=== PATIENT | female | born 1985 | race Caucasian/White ===

== ENCOUNTER 2023-07-22 15:54 | Outpatient (CLI) | payer BC, SELFPAY ==
--- NOTE | ~2023-07-22 | XR_ITS ---
Lumbosacral Spine: AP and lateral views Clinical History: Pain Findings: The normal lordotic curve is maintained. The vertebral bodies and posterior elements are i ntact. The intervertebral disc spaces are preserved. The sacroiliac joints are normally outlined. Impression: No significant abnormality. Reviewed, dictated and finalized at [facility]. 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
--- NOTE | ~2023-07-22 | XR_ITS ---
Thoracic spine: Clinical Indication: Back pain AP and lateral views were performed. No fracture is seen. There is normal alignment of the vertebrae. The intervertebral disc spaces appe ar normal. Paravertebral soft tissues appear normal. Impression: No significant abnormalities noted. Reviewed, dictated and finalized at [facility]. ALS RN Impression: No significant abnormalities noted.
== END 2023-07-22 15:55 | disposition home or self-care (01) ==
LOC: CHSIMG 16:00
PROVIDERS: PCP Physician Assistant; Visit Provider Physician Assistant
DX: M54.9 Dorsalgia, unspecified (principal)
CPT/HCPCS: 72072; 72100

== ENCOUNTER 2024-09-17 01:52 | Observation (INO) | payer BC, SELFPAY ==
[2024-09-17] VITALS (18 sets, daily range): BP systolic 108–151; BP diastolic 59–112; PULSE 72–109; RESP 14–40; TEMP 36.2–37.1; O2SAT 95–100; BMI 30.5
--- NOTE | ~2024-09-17 | CT_ITS ---
CT of the Abdomen and Pelvis: Indication: Abdominal pain Technique: 2.5 mm axial scans were obtained through the abdomen and pelvis following intravenous adm inistration of 100 cc of Omnipaque 350. Dose reduction technique was used on this scan by utilizing a utomated exposure control and iterative reconstruction technique. The dose-length product (DLP) was 6 19.50 mGy-cm. Findings: Scans through the lung bases are unremarkable. The liver, spleen, pancreas, adrenals and kidneys are within normal limits. Cholelithiasis noted. No evidence of aortic aneurysm. No lymphadenopathy. No bowel obstruction or bowel wall thickening. There is no evidence to suggest acute appendicitis. Images through the pelvis were performed. Urinary bladder unremarkable. No pelvic mass seen. No ascit es. Impression: Cholelithiasis. Reviewed, dictated and finalized at [facility]. 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
[2024-09-17 02:16] LABS: Basophils Absolute Auto 0.1 K/mm3 (0.0-0.1); Basophils Percent Auto 0.4 % (0.2-1.2); Eosinophils Absolute Auto 0.1 K/mm3 (0-0.3); Eosinophils Percent Auto 0.7 % (0-4.4); Hematocrit 41.6 % (37.0-47.0); Hemoglobin 14.4 g/dL (12.0-15.0); Immature Granulocyte Percent A 0.8 % (0-0.5); Lymphocytes Absolute Auto 2.05 K/mm3 (0.9-3.2); Lymphocytes Percent Auto 15.9 % (18.3-44.2); Mean Corpuscular HGB Conc 34.6 g/dl (32-36); Mean Corpuscular Hemoglobin 29.6 pg (26-34); Mean Corpuscular Volume 85.4 fl (80-100); Mean Platelet Volume 8.9 fl (7.4-10.4); Monocytes Absolute Auto 0.6 K/mm3 (0.1-0.6); Monocytes Percent Auto 4.6 % (2.6-8.5); Neutrophils Percent Auto 77.6 % (45.5-73.1); Platelet Count Result 345 k/mm3 (150-375); Red Blood Count 4.87 M/mm3 (4.2-5.4); Red Cell Distribution Width 12.4 % (11.5-14.5); White Blood Count 12.9 K/mm3 (4.5-10.0)
[2024-09-17 02:30] LABS: Lactic Acid Reflex 3.4 mmol/L (0.7-2.0)
[2024-09-17 02:34] LABS: Alanine Aminotransferase 34 U/L (6-35); Albumin Level 4.9 g/dL (3.5-5.1); Alkaline Phosphatase 71 U/L (38-126); Anion Gap 9 mmol/L (4-12); Aspartate Amino Transferase 26 U/L (14-36); Bilirubin,Total 0.5 mg/dL (0.2-1.3); Blood Urea Nitrogen 20 mg/dL (7-17); Calcium 9.6 mg/dL (8.4-10.2); Carbon Dioxide 18 mmol/L (22-30); Chloride 107 mmol/L (98-107); Estimated CRCL calculation 80 ml/min; Estimated Glomerular Filt Rate > 60; Glucose 123 mg/dL (65-110); Lipase 105 U/L (23-300); Potassium 3.7 mmol/L (3.4-5.0); Sodium 134 mmol/L (137-145)
[2024-09-17] MEDS: SODIUM CHLORIDE 0.9% IV 2,000 ML 999 ML IV CONT (02:37)
[2024-09-17] MEDS: ONDANSETRON INJ 4 MG/2 ML VIAL IV PUSH (02:37)
[2024-09-17] MEDS: KETOROLAC 15 MG/ML VIAL (*BKC) IV PUSH (02:37)
[2024-09-17] MEDS: HYDROmorphone HCL INJ (*CRX) 1 MG/ML SYR IV PUSH (02:44)
[2024-09-17] MEDS: SODIUM CHLORIDE 0.9% IV 1,000 ML 999 ML (03:04)
[2024-09-17] MEDS: CEFEPIME 2 GM/NS 50 ML 2 GM/50 ML BAG IVPB ×3 (03:06→18:25)
--- NOTE | 2024-09-17 03:46 | ED.GENADULT ---
HPI - General Adult General Chief complaint: Abdominal Pain Stated complaint: abdominal pain Time Seen by Provider: 09/17/24 01:57 History of Present Illness HPI narrative: this is a 39-year-old female presenting ED with chief complaint of right upper quadrant abdominal pain. Pain started around 9 last night. Pain is a stabbing pain in her right upper quadrant that radiates to her back. It is constant and severe in intensity and she is in obvious pain crying. She says this feels similar to when she is gallbladder is intact with a never been this intense. Patient has no previous ER visits for gallbladder pain. patient denies fevers. She has pain w/ deep respirations. Last bowel movement was earlier today. Related Data Home Medications ?Medication ?Instructions ?Recorded ?Confirmed ?Last Taken ?Type cholecalciferol (vitamin D3) 50 50 mcg PO DAILY 03/11/23 10/04/23 Unknown History mcg (2,000 unit) capsule magnesium glycinate 100 mg (as 100 mg PO TID 03/11/23 10/04/23 Unknown History glycinate) tablet vitamin D3 125 mcg (5,000 cap PO 03/11/23 10/04/23 Unknown History unit)-vitamin K2 90 mcg capsule Allergies Allergy/AdvReac Type Severity Reaction Status Date / Time Penicillins Allergy Unknown Unknown Verified 09/17/24 02:24 [facility] Past Medical History Medical History High cholesterol LLQ discomfort Diarrhea Cholelithiasis Surgical History Surgical History History of appendectomy History of endometrial ablation Family History Family History Other Heart disease Hypertension Social History Social History Smoking status: Never smoker Alcohol intake: former Substance use: never Living arrangements: with family 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 EYES: EOMI, NOSE: Atraumatic NECK: Trachea midline RESPIRATORY: No increased rate of breathing CTAB CARDIOVASCULAR: RRR, ABDOMINAL: tenderness to palpation the right upper quadrant with guarding. no rebound tenderness MUSCULOSKELETAl: No obvious deformities NEURO: Alert. Moving 4/4 extremities SKIN:: Warm, dry. Normal color PSYCHIATRIC: Normal affect Course Vital Signs Vital signs: Vital Signs Temperature 98 F 09/17/24 02:19 Pulse Rate 83 09/17/24 02:19 Respiratory Rate 40 H 09/17/24 02:19 Blood Pressure 151/112 H 09/17/24 02:19 Pulse Oximetry 100 09/17/24 02:19 Oxygen Delivery Room Air 09/17/24 02:19 Temperature 98 F 09/17/24 02:19 Pulse Rate 83 09/17/24 02:19 Respiratory Rate 40 H 09/17/24 02:19 Blood Pressure 151/112 H 09/17/24 02:19 Pulse Oximetry 100 09/17/24 02:19 Oxygen Delivery Room Air 09/17/24 02:19 Medical Decision Making MDM Narrative Medical decision making narrative: -Course: 39-year-old female presenting with right upper quadrant pain. Patient is in significant distress and exquisitely tender in the right upper quadrant. Patient given Dilaudid, Toradol and fluid resuscitation. white count 12.9, lactic 3.4, and a bicarb 18. CT abdomen pelvis showed a distended gallbladder containing noncalcified gallstones. No biliary ductal dilation seen. On re-evaluation the patient's pain is improved although she is hydrogenation still operator in the right upper quadrant. Patient will be put in observation to be evaluated by Dr. Melton in the morning. -DDX includes but is not limited to: Biliary colic, acute cholecystitis -Co-morbidities complicating care: history of gallstone -Independent interpretation of studies:labs and imaging reviewed -Discussion of Management/Consultants: Dr. Melton -Interventions: 2 L normal saline, cefepime/Flagyl, Dilaudid, Toradol -Shared decision making / Disposition:Observation Vital Signs Vital Signs: Vital Signs Temperature 98 F 09/17/24 02:19 Pulse Rate 83 09/17/24 02:19 Respiratory Rate 40 H 09/17/24 02:19 Blood Pressure 151/112 H 09/17/24 02:19 Pulse Oximetry 100 09/17/24 02:19 Oxygen Delivery Room Air 09/17/24 02:19 Temperature 98 F 09/17/24 02:19 Pulse Rate 83 09/17/24 02:19 Respiratory Rate 40 H 09/17/24 02:19 Blood Pressure 151/112 H 09/17/24 02:19 Pulse Oximetry 100 09/17/24 02:19 Oxygen Delivery Room Air 09/17/24 02:19 Lab Data 09/17/24 02:11 09/17/24 02:11 Labs: Lab Results 09/17/24 Range/Units 02:11 WBC 12.9 H (4.5-10.0) K/mm3 RBC 4.87 (4.2-5.4) M/mm3 Hgb 14.4 (12.0-15.0) g/dL Hct 41.6 (37.0-47.0) % MCV 85.4 (80-100) fl MCH 29.6 (26-34) pg MCHC 34.6 (32-36) g/dl RDW 12.4 (11.5-14.5) % Plt Count 345 (150-375) k/mm3 MPV 8.9 (7.4-10.4) fl Immature Gran % (Auto) 0.8 H (0-0.5) % Neut % (Auto) 77.6 H (45.5-73.1) % Lymph % (Auto) 15.9 L (18.3-44.2) % [place] % (Auto) 4.6 (2.6-8.5) % Eos % (Auto) 0.7 (0-4.4) % Baso % (Auto) 0.4 (0.2-1.2) % Lymph # (Auto) 2.05 (0.9-3.2) K/mm3 [place] # (Auto) 0.6 (0.1-0.6) K/mm3 Eos # (Auto) 0.1 (0-0.3) K/mm3 Baso # (Auto) 0.1 (0.0-0.1) K/mm3 Abs Immat Gran (auto) 0.10 H (0.00-0.031) K/mm3 Absolute Neuts (auto) 10.0 H (1.3-6.7) K/mm3 Absolute Nucleated RBC 0.000 (0.0-0.012) K/mm3 Nucleated RBC % 0.0 (0.0-0.2) % Sodium 134 L (137-145) mmol/L Potassium 3.7 (3.4-5.0) mmol/L Chloride 107 (98-107) mmol/L Carbon Dioxide 18 L (22-30) mmol/L Anion Gap 9 (4-12) mmol/L BUN 20 H (7-17) mg/dL Creatinine 0.70 (0.7-1.0) mg/dL Estim Creat Clear Calc 80 ml/min Estimated GFR > 60 (59 - ) Glucose 123 H (65-110) mg/dL Lactic Acid 3.4 H (0.7-2.0) mmol/L Calcium 9.6 (8.4-10.2) mg/dL Total Bilirubin 0.5 (0.2-1.3) mg/dL AST 26 (14-36) U/L ALT 34 (6-35) U/L Alkaline Phosphatase 71 (38-126) U/L Total Protein 8.0 (6.3-8.2) g/dL Albumin 4.9 (3.5-5.1) g/dL Lipase 105 (23-300) U/L Discharge Plan Discharge Clinical Impression: Abdominal pain, RUQ Patient Disposition: Still a Patient Condition: Stable Patient Language: Serbian Prescriptions: No Action cholecalciferol (vitamin D3) 50 mcg (2,000 unit) capsule 50 mcg PO DAILY vitamin D3-vitamin K2 125-90 mcg capsule PO magnesium glycinate 100 mg tablet 100 mg PO TID Follow-up/Referrals: Marlen,DOUGLAS Tanner [Primary Care Provider] -
[2024-09-17] MEDS: metroNIDAZOLE 500 MG/ISO 100ML 500 MG/100 ML BAG 100 MG IVPB ×3 (03:47→21:11)
[2024-09-17] MEDS: HYDROmorphone HCL INJ (*CRX) 1 MG/ML SYR 0.5 MG IV PUSH (04:56)
[2024-09-17 05:14] LABS: Reflex Lactic Acid Yes or No Add Lactic
[2024-09-17 06:32] LABS: Lactic Acid 1.7 mmol/L (0.7-2.0)
--- NOTE | 2024-09-17 06:32 | ADMGEN ---
This patient, Araceli Harris, was admitted to 2 Medical Room 241-. Patient/family oriented to hospital policies and general routines including ID bracelet, bed and alarms, visiting hours, pain management, procedures, bathroom and other care routines, personal items, smoking policy, room service/diet, and visiting hours. Information on how to activate the Rapid Response Team has been discussed. Patient/Family are encouraged to report perceived risks to care and to ask questions if they do not understand what they are told or what they should do.
--- NOTE | 2024-09-17 08:31 | PM.IMHP ---
H&P: HPI History of Present Illness Date/Time: 09/17/24 08:31 Chief Complaint: Right upper quadrant pain Narrative: This is a 39-year-old with known history of cholelithiasis, who presented to the ED with complaints of right upper quadrant abdominal pain starting around 9:00 p.m. last night. She had steak and potatoes for dinner last night. Her pain was similar to previous intermittent episodes of more mild epigastric and right upper quadrant pain. She was actually seen by Dr. Clayton in our office about a year ago and was scheduled for a laparoscopic cholecystectomy, which she canceled. The patient's pain last night was persistent and progressed to the point that she came into the ED for evaluation. She reports associated nausea, but no vomiting. [place] [address], LFTs normal, and lactic acid 3.4, which came down to normal after receiving 2 L of IV fluids. CT scan of the abdomen and pelvis showed a mildly distended gallbladder with multiple gallstones. She was admitted and started on IV antibiotics. She is currently NPO and now seen for surgical evaluation of cholecystitis. Review of Systems Review of Systems: All systems reviewed & are unremarkable except as noted in HPI and below PMFSH Past Medical History Medical History High cholesterol LLQ discomfort Diarrhea Cholelithiasis Surgical History Surgical History History of appendectomy History of endometrial ablation Family History Family History Other Heart disease Hypertension Social History Social History Smoking status: Never smoker Second hand tobacco smoke exposure: No Alcohol intake: never Substance use: never Substance use type: does not use Do You Feel Safe in your Home?: Yes Lack of Transportation: No Lack of Food: Never True Current Housing: I Have Housing Concerned About Future Housing: No Difficulty Paying Gas/Electric Bills: No Difficulty Paying for Meds: No Currently Unemployed: No Education: Master's Degree or Higher Difficulty w/ Childcare or Family Care: No Living arrangements: with family 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 Gender identity (if verbalized by the patient): Female Spiritual care concerns: No Meds Home Medications and Allergies Home Medications ?Medication ?Instructions ?Recorded ?Confirmed ?Type No Home Medications 09/17/24 09/17/24 History Allergies Allergy/AdvReac Type Severity Reaction Status Date / Time Penicillins Allergy Unknown Unknown Verified 09/17/24 02:24 Vital Signs Vital Signs - 24 hr 09/17/24 02:19 09/17/24 04:19 09/17/24 05:43 Temperature 98 F Pulse Rate 83 100 82 Respiratory Rate 40 H 20 17 Blood Pressure 151/112 H 140/84 108/77 Pulse Oximetry 100 95 100 Oxygen Delivery Room Air 09/17/24 06:22 09/17/24 08:00 Temperature 97.5 F L 97.1 F L Pulse Rate 77 77 Respiratory Rate 20 18 Blood Pressure 114/71 116/59 L Pulse Oximetry 98 100 Oxygen Delivery Exam Const: General: comfortable and no acute distress Nutritional Appearance: average body habitus Orientation/consciousness: patient oriented x3 HENMT: Head: normocephalic and atraumatic Ears: hearing grossly normal bilaterally Mouth: Yes moist mucous membranes Eyes: General: appearance normal, both eyes and all related structures Pupils: Equal, round and reactive pupils present Neck: Neck: normal visual inspection and full ROM Resp: Effort & Inspection: no respiratory distress Auscultation: clear to auscultation bilaterally Cardio: Rate: regular rate Rhythm: regular rhythm Heart sounds: S1 normal heart sound present and S2 normal heart sound present Peripheral pulses: Peripheral pulses 2+ throughout GI: Inspection: non-distended GI Palp: Yes Soft to palpation, Yes Tenderness to palpation present (GI) (Right upper quadrant), Yes Guarding due to palpation present (GI) (Right upper quadrant), Yes No hepatosplenomegaly present and No Rebound tenderness present Percussion: Yes normal to percussion Auscultation: normal bowel sounds Skin: General skin exam: normal color Neuro: General: moves all extremities and no focal motor deficits Speech: normal speech Motor exam (neuro): 5/5 motor strength present throughout Extrem: General: normal to inspection and no edema Psych: Mental Status: mental status grossly normal Attitude: cooperative Insight: Good insight present (Psych) Judgement: Good judgement present (Psych) H&P: Results Labs Labs: Short CBC 09/17/24 Range/Units 02:11 WBC 12.9 H (4.5-10.0) K/mm3 Hgb 14.4 (12.0-15.0) g/dL Hct 41.6 (37.0-47.0) % Plt Count 345 (150-375) k/mm3 BMP 09/17/24 02:11 Sodium 134 L Potassium 3.7 Chloride 107 Carbon Dioxide 18 L BUN 20 H Creatinine 0.70 Glucose 123 H Calcium 9.6 Liver Function 09/17/24 Range/Units 02:11 Total Bilirubin 0.5 (0.2-1.3) mg/dL AST 26 (14-36) U/L ALT 34 (6-35) U/L Alkaline Phosphatase 71 (38-126) U/L Albumin 4.9 (3.5-5.1) g/dL Imaging CT scan - abdomen: Radiologist's impression: ITS Impressions Abdomen/Pelvis CT 09/17/24 05:29 Impression: Cholelithiasis. Assessment and Plan Assessment and plan (1) Cholelithiasis with cholecystitis: Code(s): K80.10 - Calculus of gallbladder with chronic cholecystitis without obstruction Status: Acute Assessment and Plan: CT scan reviewed and shows a mildly distended gallbladder with multiple gallstones. She has been dealing with RUQ pain intermittently for over a year, and has been dealing with at least symptomatic cholelithiasis and likely chronic cholecystitis. She presents now with an acute episode of pain that has improved some, but she is still fairly tender on exam. Discussed both nonoperative and surgical treatment options. We discussed the details of a laparoscopic cholecystectomy that would be done by Dr. Melton. Description of the procedure, risks, benefits, expected outcomes, and expected recovery were discussed with the patient in detail. She agrees to proceed. We will keep her NPO and continue IV antibiotics pre-operatively. Will add maintenance IV fluids as her surgery is later in the day. Plan to proceed to the OR later today for laparoscopic cholecystectomy. (2) Fatty liver: Code(s): K76.0 - Fatty (change of) liver, not elsewhere classified Status: Acute Assessment and Plan: CT findings suggest an enlarged fatty liver. Plan I have discussed the patient's case and plan of care with Dr. Melton.
[2024-09-17] MEDS: SODIUM CHLORIDE 0.9% IV 1,000 ML 100 ML IV CONT (08:49)
--- NOTE | 2024-09-17 12:36 | WPDHPUPDATE1 ---
History and Physical Update Update Date/Time: 09/17/24 12:36 History and Physical has been reviewed, including an updated exam of the patient. There are NO changes in the patient's condition. Risks, benefits, and alternatives have been discussed and questions answered. Patient agrees to proceed with procedure.
--- NOTE | 2024-09-17 12:45 | PC.NURSE ---
To OR at 1245, IV 20 R Hand, 18 L AC. Report given to RONALD Harris.
[2024-09-17] MEDS: ACETAMINOPHEN 500 MG TABLET 1000 MG PO (13:00)
--- NOTE | 2024-09-17 13:00 | P.PNAN_ITS ---
Anes - Initial Pre Proc Eval Procedure: Operation Date: 09/17/24 14:30 Proposed Procedures p Laparoscopic Cholecystectomy - Amado Melton MD Date/Time: 09/17/24 13:00 Surgeon: Amado Melton MD Pre Op Diagnosis: RUQ pain Patient Data Age: 39 Gender: F Height: 1.52 m Weight: 71 kg Last Vital Signs Temp 36.2 C L 09/17/24 08:00 Pulse 77 09/17/24 08:00 Resp 18 09/17/24 08:00 BP 116/59 L 09/17/24 08:00 Pulse Ox 100 09/17/24 08:00 O2 Del Method Room Air 09/17/24 08:00 Allergies Allergy/AdvReac Type Severity Reaction Status Date / Time Penicillins Allergy Unknown Unknown Verified 09/17/24 02:24 Home Medications ?Medication ?Instructions ?Recorded ?Confirmed ?Type No Home Medications 09/17/24 09/17/24 History Laboratory Tests 09/17/24 09/17/24 02:11 06:04 WBC 12.9 H K/mm3 (4.5-10.0) RBC 4.87 M/mm3 (4.2-5.4) Hgb 14.4 g/dL (12.0-15.0) Hct 41.6 % (37.0-47.0) MCV 85.4 fl (80-100) MCH 29.6 pg (26-34) MCHC 34.6 g/dl (32-36) RDW 12.4 % (11.5-14.5) Plt Count 345 k/mm3 (150-375) MPV 8.9 fl (7.4-10.4) Immature Gran % (Auto) 0.8 H % (0-0.5) Neut % (Auto) 77.6 H % (45.5-73.1) Lymph % (Auto) 15.9 L % (18.3-44.2) [place] % (Auto) 4.6 % (2.6-8.5) Eos % (Auto) 0.7 % (0-4.4) Baso % (Auto) 0.4 % (0.2-1.2) Lymph # (Auto) 2.05 K/mm3 (0.9-3.2) [place] # (Auto) 0.6 K/mm3 (0.1-0.6) Eos # (Auto) 0.1 K/mm3 (0-0.3) Baso # (Auto) 0.1 K/mm3 (0.0-0.1) Abs Immat Gran (auto) 0.10 H K/mm3 (0.00-0.031) Absolute Neuts (auto) 10.0 H K/mm3 (1.3-6.7) Absolute Nucleated RBC 0.000 K/mm3 (0.0-0.012) Nucleated RBC % 0.0 % (0.0-0.2) Sodium 134 L mmol/L (137-145) Potassium 3.7 mmol/L (3.4-5.0) Chloride 107 mmol/L (98-107) Carbon Dioxide 18 L mmol/L (22-30) Anion Gap 9 mmol/L (4-12) BUN 20 H mg/dL (7-17) Creatinine 0.70 mg/dL (0.7-1.0) Estim Creat Clear Calc 80 ml/min Estimated GFR > 60 (59 - ) Glucose 123 H mg/dL (65-110) Lactic Acid 3.4 H mmol/L 1.7 mmol/L (0.7-2.0) (0.7-2.0) Calcium 9.6 mg/dL (8.4-10.2) Total Bilirubin 0.5 mg/dL (0.2-1.3) AST 26 U/L (14-36) ALT 34 U/L (6-35) Alkaline Phosphatase 71 U/L (38-126) Total Protein 8.0 g/dL (6.3-8.2) Albumin 4.9 g/dL (3.5-5.1) Lipase 105 U/L (23-300) Patient hx anesthesia problems: none Family hx anesthesia problems: none Results Review: All pre-operative results and documents have been reviewed as part of the pre- operative evaluation. [facility] Past Medical History Medical History High cholesterol LLQ discomfort Diarrhea Cholelithiasis Surgical History Surgical History History of appendectomy History of endometrial ablation Family History Family History Other Heart disease Hypertension Social History Social History Smoking status: Never smoker Second hand tobacco smoke exposure: No Alcohol intake: never Substance use: never Substance use type: does not use Do You Feel Safe in your Home?: Yes Lack of Transportation: No Lack of Food: Never True Current Housing: I Have Housing Concerned About Future Housing: No Difficulty Paying Gas/Electric Bills: No Difficulty Paying for Meds: No Currently Unemployed: No Education: Master's Degree or Higher Difficulty w/ Childcare or Family Care: No Living arrangements: with family 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 Informed Consent: The patient's anesthetic plan and its attendant risks and benefits were discussed with the patient/family/POA. Questions were solicited and answers provided to the satisfaction of the patient/family/POA.
[2024-09-17 13:14] LABS: BEDSIDEPREGUCG Negative (Negative)
[2024-09-17] MEDS: LACTATED RINGERS 1,000 ML 30 ML IV CONT ×2 (13:15→14:51)
--- NOTE | 2024-09-17 15:05 | P.OP_ITS ---
Procedure Note - Detailed Date of Procedure 09/17/24 Pre-op Diagnosis Chronic cholecystitis with gallstones Post-op Diagnosis Other (Acute cholecystitis with gallstones) Procedure Performed Laparoscopic cholecystectomy Surgeon Amado Melton MD Electric Track Switch Maintainer Carolynn Bullock [facility] Anesthesia General and Local Indications Patient came to the hospital with severe right upper quadrant abdominal pain and nausea. Imaging in the emergency room showed cholelithiasis. She has had episodes of this in the past. Findings Acute, very edematous, gallbladder with evidence of chronic inflammation but mostly acute inflammation and a distended gallbladder. No biliary ductal dilatation or liver abnormalities were appreciated. Description of Procedure Patient was taken to the operating room and general anesthesia was introduced. The entire abdomen was prepped and draped. Trocars were placed in the usual fashion using applied [employer] optical trocars and a 5 mm camera. The gallbladder was distended and very edematous consistent with acute inflammation. It was freed from adhesions and then using a laparoscopic aspirator, the gallbladder was decompressed. The cholecystotomy was closed with a Vicryl endoloop. Gallbladder was then grasped and retracted anterosuperiorly. The lateral segment of the left lobe of the liver was redundant and floppy around covering the cholecystohepatic triangle. A 5th trocar had to be placed in the left mid abdomen. This was a laparoscopic Kittner and was used to retract the lateral segment of the left lobe of the liver out of our visual field. Traction was then placed on the infundibulum and dissection was carried out in the triangle of Calot. This area was acutely edematous and hypervascular consistent with acute inflammation. Gallbladder wall was thickened. Dissection was carefully carried out and the cystic duct and cystic artery were dissected. The cystic duct was relatively short. The junction with the common bile duct was seen. We dissected the gallbladder off the liver at its lower 3rd. Critical view was achieved. I then securely clipped and divided the cystic duct and cystic artery. We then placed traction on the gallbladder and continued to carefully dissected free from the liver. This was nearly an avascular dissection. Cautery was used for hemostasis. Once the gallbladder was completely removed from the liver, it was placed in an Endo-Catch bag and retrieved through the 10 11 epigastric trocar site. The skin incision had to be enlarged at the epigastric trocar site. The fascial opening had to be dilated t o accommodate the gallbladder with multiple stones and very thickened wall. We replaced the epigastric trocar and then reviewed the right upper quadrant. A towel clip pad to be placed on the skin to occlude the skin and subcutaneous around the epigastric trocar so that we could re-insufflated. We reviewed the areas of gallbladder fossa and right upper quadrant. Irrigation and suctioning were carried out. All looked good with no evidence of bleeding or bile leakage. We then evacuated CO2 and removed the trocar sleeves. 0 Vicryl suture were then used in [id number] mattress fashion to close the fascia at the epigastric trocar site. The subcu was closed with 3-0 Vicryl suture. All skin wounds were closed with subcuticular running 4-0 Monocryl skin suture. The wounds were dressed with Exofin surgical adhesive. The patient was awakened and taken to recovery in good condition. Sponge and needle counts were correct x2. Estimated Blood Loss -10 Drains No Packing No Pathology Yes (Gallbladder) Complications None Condition Stable Disposition PACU [facility] Billing Surgery - Charge Forward: Surgery Billing (Laparoscopic cholecystectomy)
[2024-09-17] MEDS: fentaNYL CITRATE INJ (*CRX) 100 MCG/2 ML VIAL 25 MCG IV PUSH ×8 (15:09→15:50)
--- NOTE | 2024-09-17 16:30 | PC.NURSE ---
Returned from OR per [id number]. Report received from RONALD Estrada
--- NOTE | 2024-09-17 16:33 | PC.NURSE ---
Returned from OR at 1630. Report received from 1630 .
[2024-09-17] MEDS: LACTATED RINGERS 1,000 ML 100 ML IV CONT (16:46)
[2024-09-17] MEDS: oxyCODONE/ACETAMINOPHEN (*CRX) 5-325 MG TABLET 1 TABLET PO (16:46)
[2024-09-17] MEDS: IBUPROFEN IV 800 MG/200 ML 800 MG/200 ML BAG 400 MG IVPB (20:30)
[2024-09-17] MEDS: ENOXAPARIN 30 MG/0.3 ML SYRINGE SUB-Q (21:12)
[2024-09-18] MEDS: oxyCODONE/ACETAMINOPHEN (*CRX) 5-325 MG TABLET 1 TABLET PO (00:30)
[2024-09-18 02:02] VITALS: BP 129/72; PULSE 82; RESP 17; TEMP 36.9; O2SAT 97
[2024-09-18] MEDS: CEFEPIME 2 GM/NS 50 ML 2 GM/50 ML BAG IVPB ×2 (02:37→13:22)
[2024-09-18] MEDS: metroNIDAZOLE 500 MG/ISO 100ML 500 MG/100 ML BAG 100 MG IVPB ×2 (03:49→13:53)
[2024-09-18 06:06] VITALS: BP 140/87; PULSE 81; RESP 17; TEMP 37; O2SAT 98
[2024-09-18 06:50] LABS: Hematocrit 34.2 % (37.0-47.0); Hemoglobin 11.5 g/dL (12.0-15.0); Mean Corpuscular HGB Conc 33.6 g/dl (32-36); Mean Corpuscular Hemoglobin 29.7 pg (26-34); Mean Corpuscular Volume 88.4 fl (80-100); Platelet Count Result 231 k/mm3 (150-375); Red Blood Count 3.87 M/mm3 (4.2-5.4); Red Cell Distribution Width 12.7 % (11.5-14.5)
[2024-09-18 07:03] LABS: Anion Gap 0 mmol/L (4-12); Blood Urea Nitrogen 8 mg/dL (7-17); Carbon Dioxide 24 mmol/L (22-30); Chloride 111 mmol/L (98-107); Estimated CRCL calculation 109 ml/min; Estimated Glomerular Filt Rate > 60; Glucose 97 mg/dL (65-110); Potassium 3.6 mmol/L (3.4-5.0); Sodium 135 mmol/L (137-145)
--- NOTE | 2024-09-18 08:20 | WPDANESPN ---
Anes - Prog Note Post-Op Date/Time: 09/18/24 08:20 Vital Signs: Last Vital Signs Temp 37.0 C 09/18/24 06:06 Pulse 81 09/18/24 06:06 Resp 17 09/18/24 06:06 BP 140/87 09/18/24 06:06 Pulse Ox 98 09/18/24 06:06 O2 Del Method Room Air 09/17/24 16:15 O2 Flow Rate 8 09/17/24 15:00 Pain Score (VAS): 0 I/O: Intake & Output 09/17/24 09/18/24 09/18/24 23:59 07:59 15:59 Intake Total 1618.3 736.7 Balance 1618.3 736.7 Laboratory Tests 09/18/24 06:32 09/18/24 06:32 09/17/24 09/18/24 13:12 06:32 WBC 10.0 RBC 3.87 L Hgb 11.5 L Hct 34.2 L MCV 88.4 MCH 29.7 MCHC 33.6 RDW 12.7 Plt Count 231 MPV 9.0 Sodium 135 L Potassium 3.6 Chloride 111 H Carbon Dioxide 24 Anion Gap 0 L BUN 8 D Creatinine 0.50 L Estim Creat Clear Calc 109 Estimated GFR > 60 Glucose 97 Calcium 8.0 L POC Urine HCG, Qual Negative Patient Feedback: Patient satisfied with anesthetic care.
[2024-09-18] MEDS: ENOXAPARIN 30 MG/0.3 ML SYRINGE SUB-Q (09:14)
[2024-09-18 10:06] VITALS: BP 138/82; PULSE 86; RESP 18; TEMP 37.3; O2SAT 97
--- NOTE | 2024-09-18 12:36 | PM.DS ---
DS: Admitting Diagnosis Discharge Date 09/18/2024 Admitting Diagnosis chronic cholecystitis, cholelithiasis DS: Discharge Diagnosis Discharge Diagnosis (1) Cholelithiasis and acute cholecystitis without obstruction: Code(s): K80.00 - Calculus of gallbladder with acute cholecystitis without obstruction Status: Acute Assessment and Plan: doing well postop day 1. Comfortable on oral pain medications and ambulating independently. Tolerating oral intake well. Patient would like to go home and I think that is appropriate. Will go ahead discharged today in good condition. Follow-up with me in 3 weeks. Off work for 2 weeks. DS: Summary Hospital Course Hospital Course: Patient presented to the emergency room on September 17 very early in the morning. She was having severe right upper quadrant pain. She had previously been diagnosed with cholecystitis and gallstones. She had been recommended to have laparoscopic cholecystectomy in September of this year. She had a CT scan in the emergency room which showed gallstones. Liver enzymes were normal. She was admitted to Dr. spear, general surgery. She agreed to go ahead with laparoscopic cholecystectomy on 09/17/2024. Findings at surgery did show acute cholecystitis. She did well with the surgery and was able to be discharged the following day in good condition. Status at Discharge Functional status at discharge: independent ambulation Overall status at discharge: patient is progressing back to baseline Time Spent with Patient Time attestation: Total time spent providing and/or coordinating discharge services: Time spent: Less than 30 minutes DS: Data Data Completed and Pending Pending studies at discharge: Pending at discharge 09/17/24 14:28 Surgical [PTH] Routine Labs on day of discharge: Labs from last 24 hours 09/18/24 09/17/24 06:32 13:12 WBC 10.0 RBC 3.87 L Hgb 11.5 L Hct 34.2 L MCV 88.4 MCH 29.7 MCHC 33.6 RDW 12.7 Plt Count 231 MPV 9.0 Sodium 135 L Potassium 3.6 Chloride 111 H Carbon Dioxide 24 Anion Gap 0 L BUN 8 D Creatinine 0.50 L Estim Creat Clear Calc 109 Estimated GFR > 60 Glucose 97 Calcium 8.0 L POC Urine HCG, Qual Negative Discharge Plan Discharge Attending physician on discharge: Amado Spear Discharging Clinician: Amado Spear Anticipated Discharge Date/Time: 09/18/24 12:44 Patient Disposition: Home, Self-Care Activity: may shower, no straining and as tolerated Diet: low fat Wound Care Instructions: incision open to air Discharge Instructions: 1. May shower the day after surgery over incisions. 2. Call office for: -Wound increasingly painful or bleeding -Vomiting -Fever of greater than 101 degrees 3. Expect some blood on dressing and old blood on skin. 4. If no bowel movement for three days, take 1 oz. (30 ml) Milk of Magnesia, if no results, take Fleets enema. 5. No heavy lifting > 15-20 pounds for 2 weeks. 6. No driving for 3 days or while taking narcotic pain medications. 7. Up walking 10-30 minutes three times per day. 8. Resume previous home medications. 9. Follow-up 10-14 days in office for wound check or as previously scheduled. 10. Oral pain medications prescription to be sent home with patient. 11. NUTRITION: try to avoid greasy fatty foods for at least 1 week after discharge. Patient Instructions: Antibiotic Form Patient Language: Divehi Stand Alone Forms: General Discharge Information, Work/School Release IP Follow-up/Referrals: Amado Spear MD [Physician] - 3 Weeks ( call for appointment) Discharge Medications: New oxycodone-acetaminophen [Percocet] 5-325 mg tablet 0.5 - 1 tablet PO Q4H PRN (Reason: pain) Qty: 10 0RF ibuprofen 600 mg tablet 600 mg PO Q6H PRN (Reason: pain) Qty: 14 0RF Date of admission: 09/17/24 04:09 Primary Care Provider: MarlenCiro Admitting Provider: Amado Spear Attending physician on admission: Amado Spear Condition: Improved
[2024-09-18] MEDS: ACETAMINOPHEN 500 MG TABLET PO (13:27)
[2024-09-18 14:06] VITALS: BP 123/73; PULSE 63; RESP 18; TEMP 36.8; O2SAT 99
--- OUTSIDE RECORDS SUMMARY | 2024-09-23 21:08 | XMS_ITS | Encounter Summary ---
Author Organization [facility] Address [address] [place] [address]. 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
--- OUTSIDE RECORDS SUMMARY | 2024-09-23 21:08 | XMS_ITS | Encounter Summary ---
Author Organization [facility] Address [address] [place] [address]. 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 No / Unsure 02/21/2023 6:37 AM CDT documented as of this encounter Plan of Treatment Not on file documented as of this encounter Visit Diagnoses Not on filedocumented in this encounter Care Teams Surgical Technician Relationship Specialty Start Date End Date Ciro Gee PA [address] [place] [phone] PCP - General PHYSICIAN ADMINISTRATIVE ASSISTANT COORDINATOR 02/21/23 documented as of this encounter
--- OUTSIDE RECORDS SUMMARY | 2024-09-23 21:08 | XMS_ITS | Encounter Summary ---
Author Organization [facility] Address [address] [place] [address]. [place], [place] [address] [place] [address] Care Team Providers Care Exhibitor Sales Name Role Phone Unavailable Primary Care Provider Unavailabl e Encounter Details Date Type Department Care Team (Late st Contact Info) Description 09/24/2018 Abstract [facility] [address] [place] [address] Mellisa Christina, SURVEYOR HELPER ROD- [address] [facility] [place] [address] Social History Tobacco Use Types Packs/Day Years Used Date Smoking Tobacco: Never Assessed Comments Unknown Sex and Gender Information Value Date Recorded Sex Assigned at Not on file 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
--- OUTSIDE RECORDS SUMMARY | 2024-09-23 21:08 | XMS_ITS | Encounter Summary ---
Author Organization [facility] Address [address] [place] [address]. 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
--- OUTSIDE RECORDS SUMMARY | 2024-09-23 21:08 | XMS_ITS | Encounter Summary ---
Author Organization [facility] Address [address] [place] [address]. 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
--- OUTSIDE RECORDS SUMMARY | 2024-09-23 21:08 | XMS_ITS | Encounter Summary ---
Author Organization [facility] Address [address] [place] [address]. [place], [place] [address] [place] [address] Care Team Providers Care Fire Extinguisher Inspector Name Role Phone Ciro Santoro Primary Care Provider [phone] Reason for Referral * Imaging (Routine) - Closed Specialty Diagnoses / Procedures Referred By Kianac t Referred To Contact RADIOLOGY Diagnoses Abdominal pain, epigastric Procedures US ABD COMPLETE Ciro Santoro PA [address] [place] [phone] Phone: tel: fax: Referral ID Status Reason Start Date Expiration Date Visits Re quested Visits Authorized [id number] Closed 02/12/2023 02/13/2024 1 1 Reason for Visit * Imaging (Routine) - Closed Specialty Diagnoses / Procedures Referred By Contac t Referred To Contact RADIOLOGY Diagnoses Abdominal pain, epigastric Procedures US ABD COMPLETE Ciro Santoro PA [address] [place] [phone] Phone: tel: fax: Referral ID Status Reason Start Date Expiration Date Visits Re quested Visits Authorized [id number] Closed 02/12/2023 02/13/2024 1 1 Encounter Details Date Type Department Care Team (Latest Contact Info) Description 02/21/2023 6:43 AM CDT - 02/21/2023 11:59 PM CDT Hospital Encounter [facility] [address] [place] [address] Ciro Santoro, CHARLES [address] [place] [phone] Discharge Disposition: Home or Self Care (Routine Discharge) Social History Tobacco Use Types Packs/Day Years Used Date Smoking Tobacco: Never Assessed Comments Unknown Sex and Gender Information Value Date Recorded Sex Assigned at Not on file 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 No / Unsure 02/21/2023 6:37 AM CDT documented as of this encounter Plan of Treatment Not on file documented as of this encounter Procedures Procedure Name Priority Date/Time Associated Diagnosis Comments US ABD COMPLETE Routine 02/21/2023 7:49 AM CDT Abdominal pain, epigastric documented in this encounter Results * US ABD COMPLETE (02/21/2023 7:49 AM CDT) Anatomical Region Laterality Modality Abdomen Ultrasound 02/21/2023 7:26 PM CDT Impressions 02/21/2023 7:29 PM CDT IMPRESSION: Cholelithiasis. ??Otherwise essentially unremarkable. Referred By: CIRO SANTORO Interpreted By: Med Park MD, 02/21/2023 7:26 PM Narrative 02/21/2023 7:29 PM CDT Examination: Complete abdominal ultrasound. Exam time: 0656 hours. Clinical history: Epigastric pain. Comparison: None. Technique: Grayscale and color Doppler images including spectral analysis. Findings: There are numerous shadowing bright reflectors in the gallbladder, compatible with gallstones. ??The gallbladder is contracted. ??Wall thickness cannot be reliably assessed. ??There is no pericholecystic fluid. ??Sonographic Dean sign is reported as negative. ??There is no intra or extrahepatic biliary ductal dilatation. ??The common duct measures top normal at 7 mm. ??Sections through the liver are unremarkable with normal-appearing color flow and spectrum documented in the portal vein on Doppler. ??Patency of the hepatic veins and IVC is also demonstrated. ??The pancreas is partially obscured by overlying bowel gas and bowel content but appears unremarkable, as visualized. ??Sections through the spleen are unremarkable. The right kidney measures 10.6 x 4.6 x 4.8 cm. ??The left kidney measures 9.6 x 4.8 x 5 cm. ??Cortical thickness and echogenicity appear normal. ??Flow to both kidneys is documented on color Doppler. ??No renal mass or calculus is identified. ??There is no hydronephrosis. The caliber of the abdominal aorta is normal. No free fluid is seen. Procedure Note Med Park MD - 02/21/2023 Examination: Complete abdominal ultrasound. Exam time: 0656 hours. Clinical history: Epigastric pain. Comparison: None. Technique: Grayscale and color Doppler images including spectralanalysis. Findings: There are numerous shadowing bright reflectors in thegallbladder, compatible with gallstones. The gallbladder is contracted.Wall thickness cannot be reliably assessed. There is no pericholecysticfluid. Sonographic Dean sign is reported as negative. There is nointra or extrahepatic biliary ductal dilatation. The common duct measurestop normal at 7 mm. Sections through the liver are unremarkable withnormal-appearing color flow and spectrum documented in the portal vein onDoppler. Patency of the hepatic veins and IVC is also demonstrated. Thepancreas is partially obscured by overlying bowel gas and bowel contentbut appears unremarkable, as visualized. Sections through the spleen areunremarkable. The right kidney measures 10.6 x 4.6 x 4.8 cm. The left kidney measures9.6 x 4.8 x 5 cm. Cortical thickness and echogenicity appear normal.Flow to both kidneys is documented on color Doppler. No renal mass orcalculus is identified. There is no hydronephrosis. The caliber of the abdominal aorta is normal. No free fluid is seen. IMPRESSION: Cholelithiasis. Otherwise essentially unremarkable. Referred By: CIRO SANTORO Interpreted By: Med Park MD, 02/21/2023 7:26 PM us Ciro [facility] ULTRASOUND Final Result documented in this encounter Visit Diagnoses Diagnosis Abdominal pain, epigastric documented in this encounter Care Teams Fire Extinguisher Inspector Relationship Specialty Start Date End Date Ciro Santoro PA [address] [place] [phone] PCP - General PHYSICIAN SYBASE DEVELOPER 02/21/23 documented as of this encounter
--- OUTSIDE RECORDS SUMMARY | 2024-09-23 21:08 | XMS_ITS | Encounter Summary ---
Author Organization [facility] Address [address] [place] [address]. 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
--- OUTSIDE RECORDS SUMMARY | 2024-09-23 21:08 | XMS_ITS | Encounter Summary ---
Author Organization [facility] Address [address] [place] [address]. 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
--- OUTSIDE RECORDS SUMMARY | 2024-09-23 21:08 | XMS_ITS | Encounter Summary ---
Author Organization [facility] Address [address] [place] [address]. 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
--- OUTSIDE RECORDS SUMMARY | 2024-09-23 21:08 | XMS_ITS | Encounter Summary ---
Author Organization [facility] Address [address] [place] [address]. 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
--- OUTSIDE RECORDS SUMMARY | 2024-09-23 21:08 | XMS_ITS | Encounter Summary ---
Author Organization [facility] Address [address] [place] [address]. [place], [place] [address] [place] [address] Care Team Providers Care Seam Presser Name Role Phone Unavailable Primary Care Provider Unavailabl e Encounter Details Date Type Department Care Team (Late st Contact Info) Description 09/25/2013 Abstract [facility] [address] [place] [address] Social History Tobacco Use Types Packs/Day Years Used Date Smoking Tobacco: Never Assessed Comments Unknown Sex and Gender Information Value Date Recorded Sex Assigned at Not on file Legal Sex Female 10:21 PM RESIDENT CAREGIVER Gender Identity Not on file Sexual Orientation Not on file documented as of this encounter Plan of Treatment Not on file documented as of this encounter Visit Diagnoses Diagnosis Headache documented in this encounter
--- OUTSIDE RECORDS SUMMARY | 2024-09-23 21:08 | XMS_ITS | Encounter Summary ---
Author Organization [facility] Address [address] [place] [address]. [place], [place] [address] [place] [address] Care Team Providers Care Gang Supervisor Pipe Lines Name Role Phone Unavailable Primary Care Provider Unavailabl e Encounter Details Date Type Department Care Team (Late st Contact Info) Description 11/13/[address] [facility] [address] [facility] [place] [address] Chance Lopez MD [address] [place] [phone] Social History Tobacco Use Types Packs/Day Years Used Date Smoking Tobacco: Never Assessed Comments Unknown Sex and Gender Information Value Date Recorded Sex Assigned at Not on file Legal Sex Female 10:21 PM TICKET TAKER Gender Identity Not on file Sexual Orientation Not on file documented as of this encounter Plan of Treatment Not on file documented as of this encounter Visit Diagnoses Not on filedocumented in this encounter
--- OUTSIDE RECORDS SUMMARY | 2024-09-23 21:08 | XMS_ITS | Encounter Summary ---
Author Organization [facility] Address [address] [place] [address]. [place], [place] [address] [place] [address] Care Team Providers Care Underlay Stitcher Name Role Phone Unavailable Primary Care Provider Unavailabl e Encounter Details Date Type Department Care Team (Late st Contact Info) Description 10/03/1999 Abstract [facility] [address] [place] [address] , Generic Conversion, Social History Tobacco Use Types Packs/Day Years Used Date Smoking Tobacco: Never Assessed Comments Unknown Sex and Gender Information Value Date Recorded Sex Assigned at Not on file Legal Sex Female 10:21 PM OPTOMETRIST/PRACTICE OWNER Gender Identity Not on file Sexual Orientation Not on file documented as of this encounter Plan of Treatment Not on file documented as of this encounter Visit Diagnoses Not on filedocumented in this encounter
--- OUTSIDE RECORDS SUMMARY | 2024-09-23 21:08 | XMS_ITS | Clinical Summary ---
Author Organization [facility] Address [address] [place] [address]. 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 Gender Identity Not on file Sexual Orientation Not on file Last Filed Vital Signs Vital Sign Reading Time Taken Comments Blood Pressure - - Pulse - - Temperature - - Respiratory Rate - - Oxygen Saturation - - Inhaled Oxygen Concentration - - Weight 70.3 kg (155 lb) 09/24/2018 3:14 PM MOTORCYCLE BUILDER Height 154.9 cm (5' 1 ) 09/24/2018 3:14 PM MOTORCYCLE BUILDER Body Mass Index 29.29 09/24/2018 3:14 PM MOTORCYCLE BUILDER Plan of Treatment Health Maintenance Due Date Last Done Comments Cervical Cancer Screening Pa p Smear (Age 30 to 64) Every 3 Years 1983 Annual Physical 1986 Hepatitis C 2001 DTaP, Tdap and Td Vaccines ( 1 - Tdap) 2002 Hepatitis B Vaccines (1 of 3 - 19+ 3-dose series) 2002 Cervical Cancer Screening Pa p with HPV Testing (Age 30 to 64) Every 5 Years 2013 Cervical Cancer Screening wi th HPV 2013 COVID-19 Vaccine (2023-2 5 season) 2024 06/09/2021, 05/19/2021 Influenza Adult (#1) 2024 07/01/2020, 07/03/2019, 06/25/2018 Mammogram Screening 03/25/2026 03/25/2024 HPV Vaccines Aged Out No longer eligi ble based on patient's age to complete this topic Meningococcal Vaccine Aged Out No jenni jose raul eligible based on patient's age to complete this topic Pneumococcal Vaccine: Pediatrics (0 to 5 Years) and At-Risk Patients (6 to 64 Years) Aged Out No longer eligible b ased on patient's age to complete this topic RSV Immunizations Under 20 Months Aged Out No longer eligible b ased on patient's age to complete this topic Procedures Procedure Name Priority Date/Time Associated Diagnosis Comments MG SCREENING W ANJALI SKYLAR DIGI Routine 03/25/2024 7:22 AM CDT Visit for screening mammogram from Last 3 Months or Most Recently Relevant to Health Maintenance Results * MG SCREENING W ANJALI SKYLAR DIGI (03/25/2024 7:22 AM CDT) Anatomical Region Laterality Modality Breast Bilateral Mammography 03/25/2024 9:56 AM CDT Impressions 03/25/2024 9:58 AM CDT IMPRESSION: No mammographic features to suggest malignancy on baseline study. In the absence of clinical symptoms, return for annual screening mammogram due in 1 year. RECOMMENDATION: Routine Screening, Bilateral ??Mammogram in 1 year ASSESSMENT: ACR BI-RADS 1 - NEGATIVE Ordered By: AUSTEN BALLARD Interpreted By: Richar Cornejo MD, 03/25/2024 9:56 AM Narrative 03/25/2024 9:58 AM CDT EXAMINATION: BILATERAL SCREENING MAMMOGRAPHY Exam Date: 03/25/2024 6:40 AM ? CLINICAL INDICATION: ??39 years ??of age female routine screening. COMPARISON: None TECHNIQUE: Digital CC & MLO views. Tomosynthesis imaging acquisition Study read with the assistance of a computer-aided detection system. TISSUE DENSITY: There are scattered areas of fibroglandular density. FINDINGS: No suspicious grouping of microcalcifications, architectural distortion, or any suspicious nodule 3 dimensionally demonstrated in either breast. us Austen Ballard MD MAMMO Final Resu lt from Last 3 Months or Most Recently Relevant to Health Maintenance Insurance [employer] Member Subscriber Plan / Payer (Ef fective 2016-Present) Name:Araceli Harris Relation to Subscriber:Self Name:Araceli Harris Payer ID:Not on file Type:Not on file Address: [place] [phone] [employer] Care Teams Junior Project Manager Relationship Specialty Start Date End Date Ciro Gee PA [address] [place] [phone] PCP - General PHYSICIAN ECHO TECHNICIAN 02/21/23"
--- OUTSIDE RECORDS SUMMARY | 2024-09-23 21:08 | XMS_ITS | Encounter Summary ---
Author Organization [facility] Address [address] [place] [address]. [place] [address] [place] [address] Care Team Providers Care Textile Cutting Machine Operator Name Role Phone Unavailable Primary Care Provider Unavailabl e Encounter Details Date Type Department Care Team (Latest Contact Info) Description 09/24/2018 Abstract [facility] Amrik Christina FNP-BC [address] [place] [address] Social History Tobacco Use Types Packs/Day Years Used Date Smoking Tobacco: Never Assessed Comments Unknown Sex and Gender Information Value Date Recorded Sex Assigned at Not on file Legal Sex Female 10:21 PM QA DEVELOPER Gender Identity Not on file Sexual Orientation Not on file documented as of this encounter Last Filed Vital Signs Vital Sign Reading Time Taken Comments Blood Pressure - - Pulse - - Temperature - - Respiratory Rate - - Oxygen Saturation - - Inhaled Oxygen Concentration - - Weight 70.3 kg (155 lb) 09/24/2018 3:14 PM QA DEVELOPER Height 154.9 cm (5' 1 ) 09/24/2018 3:14 PM QA DEVELOPER Body Mass Index 29.29 09/24/2018 3:14 PM QA DEVELOPER documented in this encounter Progress Notes * CAROL Braga-BC - 09/24/2018 2:30 PM CST Reason For Visit New Patient Visit Referred By / Reason Patient was referred by Primary Care Physician Name: Dr. [place] Reason: Chief Complaint Chief Complaint: The patient presents to the office today with LEFT wrist mass. History of Present Illness HPI: Patient arrives to clinic for the complaint of LEFT wrist pain. She reports that she had a mass on top of her wrist for years and noticed that it moved on Saturday09-22-18 when she started having pain in her wrist. She denies any known injury. She reports that she has not had the mass drained in the past. Reports tingling in fingers with radiation up to LEFT elbow. Reports that she is unable tobend his wrist back and forth, hard to grasp objects, swelling to fingers and night pain. Takes Ibuprofen for pain with some relief. 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 Review of Systems See HPI for pertinent positives. Active Problems 1. Left wrist pain (719.43) (M25.532) Past Medical History 1. History of methicillin resistant Staphylococcus aureus infection (V12.04) (Z86.14) Surgical History 1. History of ablation Family History Family History 1. No pertinent family history Social History ?? Employed ? No alcohol use ?? Primary language is Wolof Current Meds 1. Myrbetriq 25 MG Oral Tablet Extended Release 24 Hour; Therapy: [id number] to Recorded 2. PrednisoLONE Acetate 1 % Ophthalmic Suspension; Therapy: [id number] to Recorded Vitals Recorded: 24Sep2018 03:14PM Not able to obtain height Patient stated height Height 5 ft 1 in Weight 155 lb BMI Calculated 29.29 BSA Calculated 1.7 Unable to obtain weight Patient stated weight Physical Exam Constitutional: alert and in no acute distress. Neurological:. the patient was oriented to person, place, and time. . mood and affect were appropriate.. Eyes: the sclera and conjunctiva were normal. ENT: hearing was normal. Neck: the appearance of the neck was normal. Pulmonary: no respiratory distress. Skin: no injuries or skin lesions on the left upper extremity. Left Wrist: EXAM today reveals diffuse tenderness over distal radius with palpation greatest over scapholunate and 1st compartment space, able to make a fist, stiff range of motion, good capillary refill, positive Kelli, small palpable movable mass (<0.5 cm) over dorsal radial side of wrist, palpable radial pulse. Results/Data Views: of the left wrist. XRAY today reveals no acute bony injury; minimal degenerative changes. Findings: Procedure Procedure: Aspiration of the wrist on the left. Indications for the procedure include ganglion cyst. The procedure's were discussed with the patient. Verbal consent was obtained prior to the procedure. Procedure Note: Glory was prepped and draped in the usual sterile fashion using alcohol and using betadine. Anesthesia: ethyl chloride spray.. Small amount of decompression appreciated without any fluid present fluid was aspirated with an 18-gauge, 1.5 inch needle. A bandage was applied. Post-Procedure: the patient tolerated the procedure well. Complications: there were no complications. Follow-up in the office in 2 week(s). Assessment 1. De Quervain's tenosynovitis, left (727.04) (M65.4) 2. Ganglion of left wrist (727.41) (M67.432) Plan De Quervain's tenosynovitis, left, Ganglion of left wrist 1. MethylPREDNISolone 4 MG Oral Tablet Therapy Pack; as directed Rx By: Amrik Christina; Dispense: 0 Days ; #:1 X 21 Tablet Pack; Refill: 0; For: De Quervain's tenosynovitis, left, Ganglion of left wrist; AVELINA = N; Rx auto- faxed to [facility]; Last Updated By: Daphne Stearns; 09/24/2018 3:06:00 PM 2. Continue with our present treatment plan.; Status:Complete; Done: 24Sep2018 Ordered; For:De Quervain's tenosynovitis, left, Ganglion of left wrist; Ordered By:Amrik Christina; 3. You may continue or resume your normal level of activity.; Status:Complete; Done: 24Sep2018 Ordered; For:De Quervain's tenosynovitis, left, Ganglion of left wrist; Ordered By:Amrik Christina; Attempted to aspirate the mass and felt mild decompression of the mass and patient reporting some relief upon removing the needle. I have recommended starting her on a Medrol dose pack and taking NSAIDs for pain. She will follow up in 2 weeks for reevaluation. Signatures Electronically signed by : MAURICE Redmond; Sep 28 2018 9:11PM QA DEVELOPER (Author) documented in this encounter Plan of Treatment Not on file documented as of this encounter Procedures Procedure Name Priority Date/Time Associated Diagnosis Comments XR WRIST LT MIN 3V Routine 09/24/2018 3: 50 PM QA DEVELOPER documented in this encounter Results * XR WRIST LT MIN 3V (09/24/2018 3:50 PM QA DEVELOPER) Anatomical Region Laterality Modality Wrist Radiographic Shraddha ging 09/24/2018 3:50 PM QA DEVELOPER 09/24/2018 3:50 PM QA DEVELOPER Narrative 09/24/2018 3:52 PM QA DEVELOPER [facility] ?? [address] [facility] [address] [employer] ?? [place], [place] ? Patient Name: GLORY HARRIS Date of : 1985 ?? Med Rec #: [id number] ??Age/Sex: 33/F ?Pt. Location: ORTHO ?? Attending Provider: AMRIK CHRISTINA NP ?? Ordering Provider: AMRIK CHRISTINA NP ? Study Date Order Number Procedure ?? 09/24/18 [id number] XR Wrist 3 or more Views Lt ? Signed ? Examination: Left wrist 3 or more views ? Exam date/time: 09/24/2018 12:00 AM ? Reason For Exam: ?Ganglion cyst in the left wrist with tingling in the fingers ? Comparison: None ? Technique: AP, oblique and lateral views of the left wrist were obtained. ? Findings: No acute fracture or dislocation. Carpal spacing is preserved. No radio opaque foreign bodies. No destructive osseous lytic or sclerotic lesions. ? ===== ?? IMPRESSION:===== ?? 1. ??No acute osseous abnormalities. ? Electronically Signed By: FELIPE PERLA MD 09/24/18 3450 ? Dictated On: 09/24/18 1550 ?? Interpreted By: FELIPE PERLA MD ?? Transcribed On: 09/24/18 1550 - [facility] ?? Procedure Note Markus Parker MD - 12/04/[address] Patient Name: GLORY HARRIS Date of : 1985 Med Rec #: [id number] Age/Sex: 33/F Pt. Location: ORTHO Attending Provider: AMRIK CHRISTINA NP Ordering Provider: AMRIK CHRISTINA NP Study Date Order Number Procedure 09/24/18 [id number] XR Wrist 3 or more Views Lt Signed Examination: Left wrist 3 or more views Exam date/time: 09/24/2018 12:00 AM Reason For Exam: Ganglion cyst in the left wrist with tingling in the fingers Comparison: None Technique: AP, oblique and lateral views of the left wrist were obtained. Findings: No acute fracture or dislocation. Carpal spacing is preserved.No radio opaque foreign bodies. No destructive osseous lytic or sclerotic lesions. ===== IMPRESSION:===== 1. No acute osseous abnormalities. Electronically Signed By: FELIPE PERLA MD 09/24/18 155 Dictated On: 09/24/181549 Interpreted By: FELIPE PERLA MD Transcribed On: 09/24/181549 - [facility] us Amrik Christina PRIMARY SPECIAL EDUCATION TEACHER-BC GENERAL IMAGING Final Resu lt documented in this encounter Visit Diagnoses Not on filedocumented in this encounter
--- OUTSIDE RECORDS SUMMARY | 2024-09-23 21:08 | XMS_ITS | Encounter Summary ---
Author Organization [facility] Address [address] [place] [address]. 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
--- OUTSIDE RECORDS SUMMARY | 2024-09-23 21:08 | XMS_ITS | Encounter Summary ---
Author Organization [facility] Address [address] [place] [address]. 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
--- OUTSIDE RECORDS SUMMARY | 2024-09-23 21:08 | XMS_ITS | Encounter Summary ---
Author Organization [facility] Address [address] [place] [address]. 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
--- OUTSIDE RECORDS SUMMARY | 2024-09-23 21:08 | XMS_ITS | Encounter Summary ---
Author Organization [facility] Address [address] [place] [address]. [place], [place] [address] [place] [address] Care Team Providers Care Tombstone Polisher Name Role Phone Ciro Gee Primary Care Provider [phone] Reason for Referral * Imaging (Routine) - New Request Specialty Diagnoses / Procedures Referred By Tatiana chamberlain Referred To Contact RADIOLOGY Diagnoses Visit for screening mammogram Procedures MG SCREENING W Austen Reyes MD [facility] [address] [place] [address] Phone: tel: fax: Referral ID Status Reason Start Date Expiration Date V isits Requested Visits Authorized [id number] New Request 03/18/2024 05/19/2025 1 1 Reason for Visit * Imaging (Routine) - New Request Specialty Diagnoses / Procedures Referred By Tatiana chamberlain Referred To Contact RADIOLOGY Diagnoses Visit for screening mammogram Procedures MG SCREENING W Austen Reyes MD [facility] [address] [place] [id number] Phone: tel: fax: Referral ID Status Reason Start Date Expiration Date V isits Requested Visits Authorized [id number] New Request 03/18/2024 05/19/2025 1 1 Encounter Details Date Type Department Care Team (Latest Contact Info) Description 03/25/2024 6:40 AM CDT - 03/25/2024 11:59 PM CDT Hospital Encounter [facility] [address] [address] [place] [address] Austen Cross MD [facility] [address] [place] [address] Discharge Disposition: Home or Self Care (Routine Discharge) Social History Tobacco Use Types Packs/Day Years Used Date Smoking Tobacco: Never Assessed Comments No Sex and Gender Information Value Date Recorded Sex Assigned at Not on file 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 Gender Identity Not on file Sexual Orientation Not on file documented as of this encounter Plan of Treatment Not on file documented as of this encounter Procedures Procedure Name Priority Date/Time Associated Diagnosis Comments MG SCREENING W ANJALI SKYLAR DIGI Routine 03/25/2024 7:22 AM CDT Visit for screening mammogram documented in this encounter Results * MG SCREENING W ANJALI SKYLAR [...] Austen Ballard MD MAMMO Final Resu lt documented in this encounter Visit Diagnoses Diagnosis Visit for screening mammogram Other screening mammogram documented in this encounter Care Teams Tombstone Polisher Relationship Specialty Start Date End Date Ciro Gee PA [address] [place] [phone] PCP - General PHYSICIAN STILL OPERATOR GIN 02/21/23 documented as of this encounter
--- OUTSIDE RECORDS SUMMARY | 2024-09-23 21:08 | XMS_ITS | Encounter Summary ---
Author Organization [facility] Address [address] [place] [address]. 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
--- OUTSIDE RECORDS SUMMARY | 2024-09-23 21:08 | XMS_ITS | Encounter Summary ---
Author Organization [facility] Address [address] [place] [address]. [place], [place] [address] [place] [address] Care Team Providers Care Tester Printed Circuit Boards Name Role Phone Unavailable Primary Care Provider Unavailabl e Encounter Details Date Type Department Care Team (Late st Contact Info) Description 01/04/2002 Abstract [facility] [address] [place] [address] , Generic Conversion, Social History Tobacco Use Types Packs/Day Years Used Date Smoking Tobacco: Never Assessed Comments Unknown Sex and Gender Information Value Date Recorded Sex Assigned at Not on file Legal Sex Female 10:21 PM ROOFER Gender Identity Not on file Sexual Orientation Not on file documented as of this encounter Plan of Treatment Not on file documented as of this encounter Visit Diagnoses Not on filedocumented in this encounter
--- OUTSIDE RECORDS SUMMARY | 2024-09-23 21:08 | XMS_ITS | Encounter Summary ---
Author Organization [facility] Address [address] [place] [address]. [place], [place] [address] [place] [address] Care Team Providers Care Set And Exhibit Designer Name Role Phone Ciro Gee Primary Care Provider [phone] Encounter Details Date Type Department Care Team (Latest Contact Info) Description 07/22/2018 Abstract [facility] , Markus Jordan MD Social History Tobacco Use Types Packs/Day Years Used Date Smoking Tobacco: Never Assessed Comments Unknown Sex and Gender Information Value Date Recorded Sex Assigned at Not on file Legal Sex Female 10:21 PM APPLIED RESEARCH DIRECTOR Gender Identity Not on file Sexual Orientation Not on file documented as of this encounter Plan of Treatment Not on file documented as of this encounter Visit Diagnoses Not on filedocumented in this encounter Care Teams Set And Exhibit Designer Relationship Specialty Start Date End Date Ciro Gee PA [address] [place] [phone] PCP - General PHYSICIAN RAIMANN MACHINE OPERATOR 02/21/23 documented as of this encounter
--- OUTSIDE RECORDS SUMMARY | 2024-09-23 21:09 | XMS_ITS | Encounter Summary ---
Author Organization [facility] Address [address] [place] [address]. [place], [place] [address] [place] [address] Care Team Providers Care Cook [employer] Name Role Phone Unavailable Primary Care Provider Unavailabl e Encounter Details Date Type Department Care Team (Late st Contact Info) Description 06/07/1994 Abstract [facility] [address] [place] [address] , Generic Conversion, Social History Tobacco Use Types Packs/Day Years Used Date Smoking Tobacco: Never Assessed Comments Unknown Sex and Gender Information Value Date Recorded Sex Assigned at Not on file Legal Sex Female 10:21 PM ELECTRICAL TECH/PROJECT MANAGER Gender Identity Not on file Sexual Orientation Not on file documented as of this encounter Plan of Treatment Not on file documented as of this encounter Visit Diagnoses Not on filedocumented in this encounter
--- OUTSIDE RECORDS SUMMARY | 2024-09-23 21:47 | XMS_ITS | Encounter Summary ---
Author Organization [facility] Address [address] [place] [address]. [place], [place] [address] [place] [address] Care Team Providers Care Tower Foreman Name Role Phone Ciro Santoro Primary Care Provider Reason for Referral * Imaging (Routine) - Closed Specialty Diagnoses / Procedures Referred By Kianac t Referred To Contact RADIOLOGY Diagnoses Abdominal pain, epigastric Procedures US ABD COMPLETE Ciro Santoro PA [address] [place] [phone] Phone: tel: fax: Referral ID Status Reason Start Date Expiration Date Visits Re quested Visits Authorized [id number] Closed 02/12/2023 02/13/2024 1 1 Reason for Visit * Imaging (Routine) - Closed Specialty Diagnoses / Procedures Referred By Contac t Referred To Contact RADIOLOGY Diagnoses Abdominal pain, epigastric Procedures US ABD COMPLETE Ciro Santoro PA [address] [place] [phone] Phone: tel: fax: Referral ID Status Reason Start Date Expiration Date Visits Re quested Visits Authorized [id number] Closed 02/12/2023 02/13/2024 1 1 Encounter Details Date Type Department Care Team (Latest Contact Info) Description 02/21/2023 6:43 AM CDT - 02/21/2023 11:59 PM CDT Hospital Encounter [facility] [address] [place] [address] Ciro Santoro, CHARLES [address] [place] [address] Discharge Disposition: Home or Self Care (Routine Discharge) Social History Tobacco Use Types Packs/Day Years Used Date Smoking Tobacco: Never Assessed Comments Unknown Sex and Gender Information Value Date Recorded Sex Assigned at Not on file Legal Sex Female 10:21 PM SEMICONDUCTOR PACKAGES LEAK TESTER Gender Identity Not on file Sexual Orientation [...] epigastric documented in this encounter Care Teams Tower Foreman Relationship Specialty Start Date End Date Ciro Santoro PA [address] [place] [phone] PCP - General PHYSICIAN MERRY GO ROUND ATTENDANT 02/21/23 documented as of this encounter
--- OUTSIDE RECORDS SUMMARY | 2024-09-23 21:47 | XMS_ITS | Encounter Summary ---
Author Organization [facility] Address [address] [place] [address]. [place], [place] [address] [place] [address] Care Team Providers Care Asphalt Plant Worker Name Role Phone Unavailable Primary Care Provider Unavailabl e Encounter Details Date Type Department Care Team (Late st Contact Info) Description 11/13/[address] 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
--- OUTSIDE RECORDS SUMMARY | 2024-09-23 21:47 | XMS_ITS | Encounter Summary ---
Author Organization [facility] Address [address] [place] [address]. [place], [place] [address] [place] [address] Care Team Providers Care Medical Field Representative Name Role Phone Unavailable Primary Care Provider Unavailabl e Encounter Details Date Type Department Care Team (Late st Contact Info) Description 08/13/2008 Abstract [facility] [address] [place] [address] , Markus Jordan MD Social History Tobacco Use Types Packs/Day Years Used Date Smoking Tobacco: Never Assessed Comments Unknown Sex and Gender Information Value Date Recorded Sex Assigned at Not on file Legal Sex Female 10:21 PM INDEPENDENT FILM MAKER Gender Identity Not on file Sexual Orientation Not on file documented as of this encounter Plan of Treatment Not on file documented as of this encounter Visit Diagnoses Not on filedocumented in this encounter
--- OUTSIDE RECORDS SUMMARY | 2024-09-23 21:47 | XMS_ITS | Encounter Summary ---
Author Organization [facility] Address [address] [place] [address]. [place], [place] [address] [place] [address] Care Team Providers Care Communications Operator Name Role Phone Ciro Gee Primary Care Provider [phone] Encounter Details Date Type Department Care Team (Late st Contact Info) Description 02/21/2019 Abstract [facility] [address] [place] [address] , Generic Conversion, Social History Tobacco Use Types Packs/Day Years Used Date Smoking Tobacco: Never Assessed Comments Unknown Sex and Gender Information Value Date Recorded Sex Assigned at Not on file Legal Sex Female 10:21 PM SECURITY POLICE Gender Identity Not on file Sexual Orientation Not on file documented as of this encounter Plan of Treatment Not on file documented as of this encounter Visit Diagnoses Not on filedocumented in this encounter Care Teams Communications Operator Relationship Specialty Start Date End Date Ciro Gee PA [address] [place] [phone] PCP - General PHYSICIAN CURRENCY MACHINE OPERATOR 02/21/23 documented as of this encounter
--- OUTSIDE RECORDS SUMMARY | 2024-09-23 21:47 | XMS_ITS | Encounter Summary ---
Author Organization [facility] Address [address] [place] [address]. [place], [place] [address] [place] [address] Care Team Providers Care Personnel Training Officer Name Role Phone Ciro Gee Primary Care Provider [phone] Encounter Details Date Type Department Care Team (Latest Contact Info) Description 03/25/2024 Travel Social History Tobacco Use Types Packs/Day Years Used Date Smoking Tobacco: Never Assessed Comments No Sex and Gender Information Value Date Recorded Sex Assigned at Not on file Legal Sex Female 10:21 PM AREA SECRETARY Gender Identity Not on file Sexual Orientation Not on file documented as of this encounter Plan of Treatment Not on file documented as of this encounter Visit Diagnoses Not on filedocumented in this encounter Care Teams Personnel Training Officer Relationship Specialty Start Date End Date Ciro Gee PA [address] [place] [phone] PCP - General PHYSICIAN AIRPORT MAINTENANCE LABORER 02/21/23 documented as of this encounter
--- OUTSIDE RECORDS SUMMARY | 2024-09-23 21:47 | XMS_ITS | Encounter Summary ---
Author Organization [facility] Address [address] [place] [address]. [place], [place] [address] [place] [address] Care Team Providers Care Premium Representative Name Role Phone Unavailable Primary Care Provider Unavailabl e Encounter Details Date Type Department Care Team (Late st Contact Info) Description 09/25/2013 Abstract [facility] [address] [place] [address] Social History Tobacco Use Types Packs/Day Years Used Date Smoking Tobacco: Never Assessed Comments Unknown Sex and Gender Information Value Date Recorded Sex Assigned at Not on file Legal Sex Female 10:21 PM DIRECTOR OF SCIENCE Gender Identity Not on file Sexual Orientation Not on file documented as of this encounter Plan of Treatment Not on file documented as of this encounter Visit Diagnoses Diagnosis Headache documented in this encounter
--- OUTSIDE RECORDS SUMMARY | 2024-09-23 21:47 | XMS_ITS | Clinical Summary ---
Author Organization [facility] Address [address] [place] [address]. [place], [place] [address] [place] [address] Care Team Providers Care Material Spreader Name Role Phone Ciro Gee Primary Care Provider Social History Tobacco Use Types Packs/Day Years Used Date Smoking Tobacco: Never Assessed Comments No Sex and Gender Information Value Date Recorded Sex Assigned at Not on file Legal Sex Female 10:21 PM CONSTRUCTION SUPERVISOR Gender Identity Not on file Sexual Orientation Not on file Last Filed Vital Signs Vital Sign Reading Time Taken Comments Blood Pressure - - Pulse - - Temperature - - Respiratory Rate - - Oxygen Saturation - - Inhaled Oxygen Concentration - - Weight 70.3 kg (155 lb) 09/24/2018 3:14 PM CONSTRUCTION SUPERVISOR Height 154.9 cm (5' 1 ) 09/24/2018 3:14 PM CONSTRUCTION SUPERVISOR Body Mass Index 29.29 09/24/2018 3:14 PM CONSTRUCTION SUPERVISOR Plan of Treatment Health Maintenance Due Date [...] ID:Not on file Type:Not on file Address: [place] [id number] [employer] Care Teams Material Spreader Relationship Specialty Start Date End Date Ciro Gee PA [address] [place] [phone] PCP - General PHYSICIAN INTERNAL SALES ENGINEER 02/21/23
--- OUTSIDE RECORDS SUMMARY | 2024-09-23 21:47 | XMS_ITS | Encounter Summary ---
Author Organization [facility] Address [address] [place] [address]. [place], [place] [address] [place] [address] Care Team Providers Care Client Relations Associate Name Role Phone Unavailable Primary Care Provider Unavailabl e Encounter Details Date Type Department Care Team (Late st Contact Info) Description 01/04/2002 Abstract [facility] [address] [place] [address] , Generic Conversion, Social History Tobacco Use Types Packs/Day Years Used Date Smoking Tobacco: Never Assessed Comments Unknown Sex and Gender Information Value Date Recorded Sex Assigned at Not on file Legal Sex Female 10:21 PM COLD ROLL INSPECTOR Gender Identity Not on file Sexual Orientation Not on file documented as of this encounter Plan of Treatment Not on file documented as of this encounter Visit Diagnoses Not on filedocumented in this encounter
--- OUTSIDE RECORDS SUMMARY | 2024-09-23 21:47 | XMS_ITS | Encounter Summary ---
Author Organization [facility] Address [address] [place] [address]. [place], [place] [address] [place] [address] Care Team Providers Care Roofing Subcontractor Name Role Phone Unavailable Primary Care Provider Unavailabl e Encounter Details Date Type Department Care Team (Late st Contact Info) Description 03/02/2000 Abstract [facility] [address] [place] [address] , Generic Conversion, Social History Tobacco Use Types Packs/Day Years Used Date Smoking Tobacco: Never Assessed Comments Unknown Sex and Gender Information Value Date Recorded Sex Assigned at Not on file Legal Sex Female 10:21 PM LASER CUTTER Gender Identity Not on file Sexual Orientation Not on file documented as of this encounter Plan of Treatment Not on file documented as of this encounter Visit Diagnoses Not on filedocumented in this encounter
--- OUTSIDE RECORDS SUMMARY | 2024-09-23 21:47 | XMS_ITS | Encounter Summary ---
Author Organization [facility] Address [address] [place] [address]. [place], [place] [address] [place] [address] Care Team Providers Care Arbor End Mainspring Former Name Role Phone Unavailable Primary Care Provider Unavailabl e Encounter Details Date Type Department Care Team (Late st Contact Info) Description 09/24/2018 Abstract [facility] [address] [place] [address] Mellisa Christina, MECHANIC FOREMAN- [address] [facility] [place] [address] Social History Tobacco Use Types Packs/Day Years Used Date Smoking Tobacco: Never Assessed Comments Unknown Sex and Gender Information Value Date Recorded Sex Assigned at Not on file Legal Sex Female 10:21 PM MECHANICAL TECHNOLOGIST Gender Identity Not on file Sexual Orientation Not on file documented as of this encounter Plan of Treatment Not on file documented as of this encounter Visit Diagnoses Diagnosis Pain in left wrist Pain in joint, forearm documented in this encounter
--- OUTSIDE RECORDS SUMMARY | 2024-09-23 21:47 | XMS_ITS | Encounter Summary ---
Author Organization [facility] Address [address] [place] [address]. [place], [place] [address] [place] [address] Care Team Providers Care High Pressure Operator Name Role Phone Ciro Gee Primary Care Provider [phone] Encounter Details Date Type Department Care Team (Latest Contact Info) Description 07/22/2018 Abstract [facility] , Markus Jordan MD Social History Tobacco Use Types Packs/Day Years Used Date Smoking Tobacco: Never Assessed Comments Unknown Sex and Gender Information Value Date Recorded Sex Assigned at Not on file Legal Sex Female 10:21 PM DUST COLLECTOR OPERATOR Gender Identity Not on file Sexual Orientation Not on file documented as of this encounter Plan of Treatment Not on file documented as of this encounter Visit Diagnoses Not on filedocumented in this encounter Care Teams High Pressure Operator Relationship Specialty Start Date End Date Ciro Gee PA [address] [place] [phone] PCP - General PHYSICIAN MANAGER WORK 02/21/23 documented as of this encounter
--- OUTSIDE RECORDS SUMMARY | 2024-09-23 21:47 | XMS_ITS | Encounter Summary ---
Author Organization [facility] Address [address] [place] [address]. [place], [place] [address] [place] [address] Care Team Providers Care Collections Attorney Name Role Phone Unavailable Primary Care Provider Unavailabl e Encounter Details Date Type Department Care Team (Late st Contact Info) Description 09/28/1997 Abstract [facility] [address] [place] [address] , Generic Conversion, Social History Tobacco Use Types Packs/Day Years Used Date Smoking Tobacco: Never Assessed Comments Unknown Sex and Gender Information Value Date Recorded Sex Assigned at Not on file Legal Sex Female 10:21 PM MACHINE TOOL DRESSER Gender Identity Not on file Sexual Orientation Not on file documented as of this encounter Plan of Treatment Not on file documented as of this encounter Visit Diagnoses Not on filedocumented in this encounter
--- OUTSIDE RECORDS SUMMARY | 2024-09-23 21:47 | XMS_ITS | Encounter Summary ---
Author Organization [facility] Address [address] [place] [address]. [place], [place] [address] [place] [address] Care Team Providers Care Booster Station Operator Name Role Phone Ciro Gee Primary Care Provider [phone] Encounter Details Date Type Department Care Team (Latest Contact Info) Description 02/21/2023 Travel Social History Tobacco Use Types Packs/Day Years Used Date Smoking Tobacco: Never Assessed Comments Unknown Sex and Gender Information Value Date Recorded Sex Assigned at Not on file Legal Sex Female 10:21 PM DIRECTOR OF ASSESSING Gender Identity Not on file Sexual Orientation [...] on filedocumented in this encounter Care Teams Booster Station Operator Relationship Specialty Start Date End Date Ciro Gee PA [address] [place] [phone] PCP - General PHYSICIAN TIRE REPAIRMAN 02/21/23 documented as of this encounter
--- OUTSIDE RECORDS SUMMARY | 2024-09-23 21:47 | XMS_ITS | Encounter Summary ---
Author Organization [facility] Address [address] [place] [address]. [place], [place] [address] [place] [address] Care Team Providers Care Vice President Medical Affairs Name Role Phone Unavailable Primary Care Provider Unavailabl e Encounter Details Date Type Department Care Team (Late st Contact Info) Description 06/07/1994 Abstract [facility] [address] [place] [address] , Generic Conversion, Social History Tobacco Use Types Packs/Day Years Used Date Smoking Tobacco: Never Assessed Comments Unknown Sex and Gender Information Value Date Recorded Sex Assigned at Not on file Legal Sex Female 10:21 PM MARKETING CLERK Gender Identity Not on file Sexual Orientation Not on file documented as of this encounter Plan of Treatment Not on file documented as of this encounter Visit Diagnoses Not on filedocumented in this encounter
--- OUTSIDE RECORDS SUMMARY | 2024-09-23 21:47 | XMS_ITS | Encounter Summary ---
Author Organization [facility] Address [address] [place] [address]. [place], [place] [address] [place] [address] Care Team Providers Care Police Captain Name Role Phone Unavailable Primary Care Provider Unavailabl e Encounter Details Date Type Department Care Team (Late st Contact Info) Description 10/03/1999 Abstract [facility] [address] [place] [address] , Generic Conversion, Social History Tobacco Use Types Packs/Day Years Used Date Smoking Tobacco: Never Assessed Comments Unknown Sex and Gender Information Value Date Recorded Sex Assigned at Not on file Legal Sex Female 10:21 PM WEIGHER AND GRADER Gender Identity Not on file Sexual Orientation Not on file documented as of this encounter Plan of Treatment Not on file documented as of this encounter Visit Diagnoses Not on filedocumented in this encounter
--- OUTSIDE RECORDS SUMMARY | 2024-09-23 21:47 | XMS_ITS | Encounter Summary ---
Author Organization [facility] Address [address] [place] [address]. [place] [address] [place] [address] Care Team Providers Care Load Mixer Name Role Phone Unavailable Primary Care Provider Unavailabl e Encounter Details Date Type Department Care Team (Latest Contact Info) Description 09/24/2018 Abstract [facility] Amrik Christina FNP-BC [address] [place] [address] Social History Tobacco Use Types Packs/Day Years Used Date Smoking Tobacco: Never Assessed Comments Unknown Sex and Gender Information Value Date Recorded Sex Assigned at Not on file Legal Sex Female 10:21 PM CNC WOOD LATHE OPERATOR Gender Identity Not on file Sexual Orientation Not on file documented as of this encounter Last Filed Vital Signs Vital Sign Reading Time Taken Comments Blood Pressure - - Pulse - - Temperature - - Respiratory Rate - - Oxygen Saturation - - Inhaled Oxygen Concentration - - Weight 70.3 kg (155 lb) 09/24/2018 3:14 PM CNC WOOD LATHE OPERATOR Height 154.9 cm (5' 1 ) 09/24/2018 3:14 PM CNC WOOD LATHE OPERATOR Body Mass Index 29.29 09/24/2018 3:14 PM CNC WOOD LATHE OPERATOR documented in this encounter Progress Notes * [...] No alcohol use ?? Primary language is Bulgarian Current Meds 1. Myrbetriq 25 MG Oral Tablet Extended Release 24 Hour; Therapy: [id number] to Recorded 2. PrednisoLONE Acetate 1 % Ophthalmic Suspension; Therapy: [id number] to Recorded Vitals Recorded: 24Sep2018 03:14PM Not [...] AVELINA = N; Rx auto- faxed to [facility] [employer] [facility]; Last Updated By: Daphne Stearns; 09/24/2018 3:06:00 [...] : MAURICE Redmond; Sep 28 2018 9:11PM CNC WOOD LATHE OPERATOR (Author) documented in this encounter Plan of Treatment Not on file documented as of this encounter Procedures Procedure Name Priority Date/Time Associated Diagnosis Comments XR WRIST LT MIN 3V Routine 09/24/2018 3: 50 PM CNC WOOD LATHE OPERATOR documented in this encounter Results * XR WRIST LT MIN 3V (09/24/2018 3:50 PM CNC WOOD LATHE OPERATOR) Anatomical Region Laterality Modality Wrist Radiographic Shraddha ging 09/24/2018 3:50 PM CNC WOOD LATHE OPERATOR 09/24/2018 3:50 PM CNC WOOD LATHE OPERATOR Narrative 09/24/2018 3:52 PM CNC WOOD LATHE OPERATOR [facility] ?? [address] [facility] [employer] ?? [place], [place] ? Patient Name: GLORY HARRIS Date of : 1985 ?? Med Rec #: [id number] ??Age/Sex: 33/F ?Pt. Location: [facility]THO ?? Attending Provider: AMRIK CHRISTINA NP ?? Ordering Provider: AMRIK CHRISTINA NP ? Study Date Order Number Procedure ?? 09/24/18 [id number] XR Wrist 3 or more Views Lt [...] Electronically Signed By: FELIPE PERLA MD 09/24/18 5430 ? Dictated On: 09/24/18 1550 ?? Interpreted By: FELIPE PERLA MD ?? Transcribed On: 09/24/18 1550 - INFCE ?? Procedure Note Markus Parker MD - 12/04/[address] Patient Name: GLORY HARRIS Date of : 1985 Med Rec #: [id number] Age/Sex: 33/F Pt. Location: ORTHO Attending Provider: AMRIK CHRISTINA NP Ordering Provider: AMRIK CHRISTINA NP Study Date Order Number Procedure 09/24/18 [id number] XR Wrist 3 or more Views Lt [...] On: 09/24/181549 - INFCE us Amrik Christina FERMENTING CELLAR DROPPER-BC GENERAL IMAGING Final Resu lt documented in this encounter Visit Diagnoses Not on filedocumented in this encounter
--- OUTSIDE RECORDS SUMMARY | 2024-09-23 21:47 | XMS_ITS | Encounter Summary ---
Author Organization [facility] Address [address] [place] [address]. [place], [place] [address] [place] [address] Care Team Providers Care Dry End Operator Name Role Phone Ciro Gee Primary Care Provider [phone] Reason for Referral * Imaging (Routine) - New Request Specialty Diagnoses / Procedures Referred By Tatiana chamberlain Referred To Contact RADIOLOGY Diagnoses Visit for screening mammogram Procedures MG SCREENING W Austen Reyes MD [facility] [address] [place] [address] Phone: tel: fax: Referral ID Status Reason Start Date Expiration Date V isits Requested Visits Authorized [id number] New Request 03/18/2024 05/19/2025 1 1 Reason for Visit * Imaging (Routine) - New Request Specialty Diagnoses / Procedures Referred By Tatiana chamberlain Referred To Contact RADIOLOGY Diagnoses Visit for screening mammogram Procedures MG SCREENING W Austen Reyes MD [facility] [address] [place] [id number] Phone: tel: fax: Referral ID Status Reason Start Date Expiration Date V isits Requested Visits Authorized [id number] New Request 03/18/2024 05/19/2025 1 1 Encounter Details Date Type Department Care Team (Latest Contact Info) Description 03/25/2024 6:40 AM CDT - 03/25/2024 11:59 PM CDT Hospital Encounter [facility] [address] [place] [address] Austen Cross MD [facility] [address] [place] [address] Discharge Disposition: Home or Self Care (Routine Discharge) Social History Tobacco Use Types Packs/Day Years Used Date Smoking Tobacco: Never Assessed Comments No Sex and Gender Information Value Date Recorded Sex Assigned at Not on file Legal Sex Female 10:21 PM VALVE MAKER Gender Identity Not on file Sexual [...] mammogram documented in this encounter Care Teams Dry End Operator Relationship Specialty Start Date End Date Ciro Gee PA [address] [place] [phone] PCP - General PHYSICIAN VICE PRESIDENT GLOBAL DIGITAL MARKETING 02/21/23 documented as of this encounter
--- OUTSIDE RECORDS SUMMARY | 2024-09-23 21:47 | XMS_ITS | Encounter Summary ---
Author Organization [facility] Address [address] [place] [address]. [place], [place] [address] [place] [address] Care Team Providers Care Medical Administrator Name Role Phone Unavailable Primary Care Provider Unavailabl e Encounter Details Date Type Department Care Team (Late st Contact Info) Description 12/22/1994 Abstract [facility] [address] [place] [address] , Generic Conversion, Social History Tobacco Use Types Packs/Day Years Used Date Smoking Tobacco: Never Assessed Comments Unknown Sex and Gender Information Value Date Recorded Sex Assigned at Not on file Legal Sex Female 10:21 PM LABOR RELATIONS REPRESENTATIVE Gender Identity Not on file Sexual Orientation Not on file documented as of this encounter Plan of Treatment Not on file documented as of this encounter Visit Diagnoses Not on filedocumented in this encounter
--- OUTSIDE RECORDS SUMMARY | 2024-09-23 21:47 | XMS_ITS | Encounter Summary ---
Author Organization [facility] Address [address] [place] [address]. [place], [place] [address] [place] [address] Care Team Providers Care Car Shakeout Operator Name Role Phone Unavailable Primary Care Provider Unavailabl e Encounter Details Date Type Department Care Team (Late st Contact Info) Description 04/16/1999 Abstract [facility] [address] [place] [address] , Generic Conversion, Social History Tobacco Use Types Packs/Day Years Used Date Smoking Tobacco: Never Assessed Comments Unknown Sex and Gender Information Value Date Recorded Sex Assigned at Not on file Legal Sex Female 10:21 PM CARRIER ASSOCIATE Gender Identity Not on file Sexual Orientation Not on file documented as of this encounter Plan of Treatment Not on file documented as of this encounter Visit Diagnoses Not on filedocumented in this encounter
--- OUTSIDE RECORDS SUMMARY | 2024-09-23 21:47 | XMS_ITS | Encounter Summary ---
Author Organization [facility] Address [address] [place] [address]. [place], [place] [address] [place] [address] Care Team Providers Care Interactive Developer Name Role Phone Unavailable Primary Care Provider Unavailabl e Encounter Details Date Type Department Care Team (Late st Contact Info) Description 08/11/1997 Abstract [facility] [address] [place] [address] , Generic Conversion, Social History Tobacco Use Types Packs/Day Years Used Date Smoking Tobacco: Never Assessed Comments Unknown Sex and Gender Information Value Date Recorded Sex Assigned at Not on file Legal Sex Female 10:21 PM CASE CHECKER Gender Identity Not on file Sexual Orientation Not on file documented as of this encounter Plan of Treatment Not on file documented as of this encounter Visit Diagnoses Not on filedocumented in this encounter
--- OUTSIDE RECORDS SUMMARY | 2024-09-23 21:47 | XMS_ITS | Encounter Summary ---
Author Organization [facility] Address [address] [place] [address]. [place], [place] [id number] [place] [address] Care Team Providers Care Water Jet Operator Name Role Phone Unavailable Primary Care Provider Unavailabl e Encounter Details Date Type Department Care Team (Late st Contact Info) Description 05/30/1998 Abstract [facility] CONVERSION [address] [place] [address] , Generic Conversion, Social History Tobacco Use Types Packs/Day Years Used Date Smoking Tobacco: Never Assessed Comments Unknown Sex and Gender Information Value Date Recorded Sex Assigned at Not on file Legal Sex Female 10:21 PM DRAW END HAND Gender Identity Not on file Sexual Orientation Not on file documented as of this encounter Plan of Treatment Not on file documented as of this encounter Visit Diagnoses Not on filedocumented in this encounter
--- OUTSIDE RECORDS SUMMARY | 2024-09-23 21:47 | XMS_ITS | Encounter Summary ---
Author Organization [facility] Address [address] [place] [address]. [place], [place] [address] [place] [address] Care Team Providers Care Coordinating Producer Name Role Phone Unavailable Primary Care Provider Unavailabl e Encounter Details Date Type Department Care Team (Late st Contact Info) Description 10/29/1995 Abstract [facility] CONVERSION [address] [place] [address] , Generic Conversion, Social History Tobacco Use Types Packs/Day Years Used Date Smoking Tobacco: Never Assessed Comments Unknown Sex and Gender Information Value Date Recorded Sex Assigned at Not on file Legal Sex Female 10:21 PM AGITATOR OPERATOR Gender Identity Not on file Sexual Orientation Not on file documented as of this encounter Plan of Treatment Not on file documented as of this encounter Visit Diagnoses Not on filedocumented in this encounter
--- OUTSIDE RECORDS SUMMARY | 2024-09-23 21:47 | XMS_ITS | Encounter Summary ---
Author Organization [facility] Address [address] [place] [address]. [place], [place] [address] [place] [address] Care Team Providers Care Tile Erector Name Role Phone Unavailable Primary Care Provider Unavailabl e Encounter Details Date Type Department Care Team (Late st Contact Info) Description 08/30/1997 Abstract SFL CONVERSION [address] [place] [address] , Generic Conversion, Social History Tobacco Use Types Packs/Day Years Used Date Smoking Tobacco: Never Assessed Comments Unknown Sex and Gender Information Value Date Recorded Sex Assigned at Not on file Legal Sex Female 10:21 PM RESEARCH NUTRITIONIST Gender Identity Not on file Sexual Orientation Not on file documented as of this encounter Plan of Treatment Not on file documented as of this encounter Visit Diagnoses Not on filedocumented in this encounter
== END 2024-09-18 15:15 | disposition home or self-care (01) ==
LOC: ANHED 04:19 → ANH3MEDSUR 05:18 → ANH2MED 06:05
PROVIDERS: Admitting Provider Surgery; Emergency Provider Emergency Medicine; PCP Physician Assistant; Visit Provider Surgery
PROC: 0FT44ZZ Resection of Gallbladder, Percutaneous Endoscopic Approach (ICD-10-PCS; CPT 47562; principal; 2024-09-17 14:30)
DX: K80.00 Calculus of gallbladder with acute cholecystitis without obstruction (principal); K76.0 Fatty (change of) liver, not elsewhere classified; E78.00 Pure hypercholesterolemia, unspecified; E66.9 Obesity, unspecified; Z68.30 Body mass index [BMI] 30.0-30.9, adult; Z88.0 Allergy status to penicillin
CPT/HCPCS: 47562; 36415; 74177; 80048; 80053; 83605; 83690; 85025; 85027; 88304; 96361; 96365; 96367; 96375; 96376; 99285; A9270; G0378; J0330; J0692; J1100; J1171; J1650; J1741; J1836; J1885; J2250; J2405; J2704; J3010; J7030; J7120; Q9967

== ENCOUNTER 2024-10-16 06:35 | Outpatient (CLI) | payer BC, SELFPAY ==
--- NOTE | ~2024-10-16 | NM_ITS ---
EXAMINATION: NM hepatobiliary wo pharm DATE: 10/16/2024 08:26 INDICATION: Abdominal pain postcholecystectomy. Assess for bile leak. COMPARISON: None. TECHNIQUE: 5.45 mCi Tc-99m mebrofenin (Choletec) was administered intravenously. Scintigraphic image s of the abdomen were obtained for one hour. FINDINGS: There is normal clearance of radiotracer from the blood pool. There is homogeneous tracer u ptake by the liver. Activity progresses to the common bile duct by 20 minutes extending into the sma ll bowel by 30 minutes with progressive accumulation over the next 30 minutes. No evident bile leak. IMPRESSION: 1. Normal post cholecystectomy hepatobiliary scan with no biliary obstruction or bile leak. Reviewed, dictated and finalized at location B. CEMENTER
--- NOTE | ~2024-10-16 | CT_ITS ---
EXAMINATION: CT abdomen pelvis w con DATE: 10/16/2024 07:07 INDICATION: Abdominal pain status post cholecystectomy. Acquired absence of other specified parts of digestive system. TECHNIQUE: Computed tomography (CT) of the abdomen and pelvis was performed with 100 mL Omnipaque 350 intravenous contrast. Automated exposure control and iterative reconstruction technique were employe d. The dose-length product was 331.21 mGy-cm. COMPARISON: CT abdomen and pelvis 09/17/2024 FINDINGS: The visualized portions of the lung bases demonstrate mild atelectasis. There are trace ple ural effusions. The heart size is normal. No pericardial effusion. The liver is normal. There are delio nges of recent cholecystectomy. The spleen, pancreas, adrenal glands, and right kidney are normal. Th ere is a 2 mm stone in left kidney. There is a left inguinal hernia containing fat. There are no dila ankit loops of bowel. There are changes of appendectomy. There are no pathologically enlarged lymph nod es. There is physiologic fluid in the pelvis. There is mild lumbar spondylosis. IMPRESSION: 1. Expected findings of recent cholecystectomy. 2. Left inguinal hernia containing fat. Reviewed, dictated and finalized at location A. [place] TECHNICIAN
--- OUTSIDE RECORDS SUMMARY | 2024-10-16 06:38 | XMS_ITS | Encounter Summary ---
Author Organization [facility] Address [address] [place] [address]. [place], [place] [address] [place] [address] Care Team Providers Care Forensic Scientist Name Role Phone Ciro Gee Primary Care Provider [phone] Encounter Details Date Type Department Care Team (Latest Contact Info) Description 07/22/2018 Abstract [facility] , Markus Jordan MD Social History Tobacco Use Types Packs/Day Years Used Date Smoking Tobacco: Never Assessed Comments Unknown Sex and Gender Information Value Date Recorded Sex Assigned at Not on file Legal Sex Female 10:21 PM ASSISTANT CURATOR Gender Identity Not on file Sexual Orientation Not on file documented as of this encounter Plan of Treatment Not on file documented as of this encounter Visit Diagnoses Not on filedocumented in this encounter Care Teams Forensic Scientist Relationship Specialty Start Date End Date Ciro Gee PA [address] [place] [phone] PCP - General PHYSICIAN WORKFORCE PLANNER 02/21/23 documented as of this encounter
--- OUTSIDE RECORDS SUMMARY | 2024-10-16 06:38 | XMS_ITS | Encounter Summary ---
Author Organization [facility] Address [address] [place] [address]. [place], [place] [address] [place] [address] Care Team Providers Care Calender Wind Up Tender Name Role Phone Ciro Gee Primary Care Provider [phone] Encounter Details Date Type Department Care Team (Late st Contact Info) Description 02/21/2019 Abstract [facility] CONVERSION [address] [place] [address] , Generic Conversion, Social History Tobacco Use Types Packs/Day Years Used Date Smoking Tobacco: Never Assessed Comments Unknown Sex and Gender Information Value Date Recorded Sex Assigned at Not on file Legal Sex Female 10:21 PM CRIMINAL JUSTICE INSTRUCTOR Gender Identity Not on file Sexual Orientation Not on file documented as of this encounter Plan of Treatment Not on file documented as of this encounter Visit Diagnoses Not on filedocumented in this encounter Care Teams Calender Wind Up Tender Relationship Specialty Start Date End Date Ciro Gee PA [address] [place] [phone] PCP - General PHYSICIAN LEGAL COUNSEL 02/21/23 documented as of this encounter
--- OUTSIDE RECORDS SUMMARY | 2024-10-16 06:38 | XMS_ITS | Clinical Summary ---
Author Organization [facility] Address [address] [place] [address]. 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 PRESIDENT OF PRODUCT MARKETING Gender Identity Not on file Sexual Orientation Not on file Last Filed Vital Signs Vital Sign Reading Time Taken Comments Blood Pressure - - Pulse - - Temperature - - Respiratory Rate - - Oxygen Saturation - - Inhaled Oxygen Concentration - - Weight 70.3 kg (155 lb) 09/24/2018 3:14 PM VICE PRESIDENT OF PRODUCT MARKETING Height 154.9 cm (5' 1 ) 09/24/2018 3:14 PM VICE PRESIDENT OF PRODUCT MARKETING Body Mass Index 29.29 09/24/2018 3:14 PM VICE PRESIDENT OF PRODUCT MARKETING Plan of Treatment Health Maintenance Due Date [...] patient's age to complete this topic Meningococcal B Vaccine Aged Out No l onger eligible based on patient's age to complete [...] nodule 3 dimensionally demonstrated in either breast. Austen Ballard MD MAMMO Final Resu lt from Last 3 Months or Most Recently Relevant to Health Maintenance Insurance [email or web address] SHIELD [email or web address] Care Teams Record Press Tender Relationship Specialty Start Date End Date Ciro Gee PA [address] [place] [phone] PCP - General PHYSICIAN ASSISTANT PROFESSOR OF GEOGRAPHY 02/21/23
[2024-10-16 09:24] LABS: Hematocrit 42.4 % (37.0-47.0); Hemoglobin 14.1 g/dL (12.0-15.0); Mean Corpuscular HGB Conc 33.3 g/dl (32-36); Mean Corpuscular Hemoglobin 29.6 pg (26-34); Mean Corpuscular Volume 88.9 fl (80-100); Mean Platelet Volume 9.7 fl (7.4-10.4); Platelet Count Result 272 k/mm3 (150-375); Red Blood Count 4.77 M/mm3 (4.2-5.4); Red Cell Distribution Width 12.4 % (11.5-14.5); White Blood Count 3.7 K/mm3 (4.5-10.0)
[2024-10-16 09:43] LABS: Alanine Aminotransferase 31 U/L (6-35); Albumin Level 4.3 g/dL (3.5-5.1); Alkaline Phosphatase 60 U/L (38-126); Anion Gap 11 mmol/L (4-12); Aspartate Amino Transferase 26 U/L (14-36); Bilirubin,Total 0.5 mg/dL (0.2-1.3); Blood Urea Nitrogen 13 mg/dL (7-17); Calcium 9.2 mg/dL (8.4-10.2); Carbon Dioxide 25 mmol/L (22-30); Chloride 104 mmol/L (98-107); Estimated Glomerular Filt Rate > 60; Glucose 85 mg/dL (65-110); Lipase 84 U/L (23-300); Potassium 4.2 mmol/L (3.4-5.0); Sodium 140 mmol/L (137-145)
[2024-10-16 09:54] LABS: Platelet Estimate Adequate (Adequate)
[2024-10-16 09:55] LABS: Large Platelets Present; Platelet Clumps Present; Schistocytes None Seen
[2024-10-16 10:10] LABS: Band Neutrophils Percent 3 % (0-6); Basophils Percent Manual 0 % (0-1); Eosinophils Absolute Manual 0.55 K/mm3 (0.02-0.50); Eosinophils Percent Manual 15 % (0-4); Monocytes Absolute Manual 0.25 K/mm3 (0.1-0.90); Monocytes Percent Manual 7 % (3-9); Neutrophils Absolute Manual 0.81 K/mm3 (1.7-7.2); Neutrophils Percent Manual 19 % (46-73); Total Cells Counted 100
[2024-10-16 10:11] LABS: Lymphocytes Absolute Manual 2.07 K/mm3 (1.1-4.5); Lymphocytes Percent Manual 56 % (18-44)
[2024-10-16 11:15] LABS: Atypical Lymphocytes Present
== END 2024-10-16 06:36 | disposition home or self-care (01) ==
PROVIDERS: Visit Provider Surgery
DX: K80.00 Calculus of gallbladder with acute cholecystitis without obstruction (principal); Z90.49 Acquired absence of other specified parts of digestive tract; K40.90 Unilateral inguinal hernia, without obstruction or gangrene, not specified as recurrent
CPT/HCPCS: 36415; 74177; 78226; 80053; 83690; 85025; A9537; Q9967

== ENCOUNTER 2025-04-01 08:04 | Outpatient (CLI) | payer BC, SELFPAY ==
--- OUTSIDE RECORDS SUMMARY | 2025-04-01 08:10 | XMS_ITS | Encounter Summary ---
Author Organization [facility] Address [address] [place] [address] Care Team Providers Care Crm Analyst Name Role Phone Ciro Gee Primary Care Provider [phone] Encounter Details Date Type Department Care Team (Late st Contact Info) Description 02/21/2019 Abstract [facility] CONVERSION [address] [place] [address] , Generic Conversion, Social History Tobacco Use Types Packs/Day Years Used Date Smoking Tobacco: Never Assessed Comments Unknown Sex and Gender Information Value Date Recorded Sex Assigned at Female 03/29/2025 6:43 AM CDT Legal Sex Female 10:21 PM CARROTER Gender Identity Not on file Sexual Orientation Not on file documented as of this encounter Plan of Treatment Not on file documented as of this encounter Visit Diagnoses Not on filedocumented in this encounter Care Teams Crm Analyst Relationship Specialty Start Date End Date Ciro Gee PA [address] [place] [phone] PCP - General PHYSICIAN DEV OPS ENGINEER 02/21/23 documented as of this encounter
--- OUTSIDE RECORDS SUMMARY | 2025-04-01 08:10 | XMS_ITS | Clinical Summary ---
Author Organization [facility] Address [address] [place] [address] Care Team Providers Care Financial Investment Adviser Name Role Phone Ciro Gee Primary Care Provider [phone] Encounters Date Type Department Care Team Description 03/29/2025 6:51 AM CDT - 03/29/2025 11:59 PM CDT Hospital Encounter [facility] [place] [id number] Austen Cross MD Arrived Discharge Disposition: Home or Self Care (Routine Discharge) 03/29/2025 Travel from Last 3 Months Social History Tobacco Use Types Packs/Day Years Used Date Smoking Tobacco: Never Assessed Comments No Sex and Gender Information Value Date Recorded Sex Assigned at Female 03/29/2025 6:43 AM CDT Legal Sex Female 10:21 PM ECHOCARDIOGRAPHY TECHNOLOGIST Gender Identity Not on file Sexual Orientation Not on file Last Filed Vital Signs Vital Sign Reading Time Taken Comments Blood Pressure - - Pulse - - Temperature - - Respiratory Rate - - Oxygen Saturation - - Inhaled Oxygen Concentration - - Weight 70.3 kg (155 lb) 09/24/2018 3:14 PM ECHOCARDIOGRAPHY TECHNOLOGIST Height 154.9 cm (5' 1) 09/24/2018 3:14 PM ECHOCARDIOGRAPHY TECHNOLOGIST Body Mass Index 29.29 09/24/2018 3:14 PM ECHOCARDIOGRAPHY TECHNOLOGIST Plan of Treatment Health Maintenance Due Date [...] Vaccine (2023-2 5 season) 2024 06/09/2021, 05/19/2021 Mammogram Screening 03/29/2027 03/29/2025, 03/25/2024 HPV Vaccines Aged Out No longer eligi ble based on patient's age to complete this topic Meningococcal B Vaccine Aged Out No l onger eligible based on patient's age to complete this topic Meningococcal Vaccine Aged Out No jenni jose raul eligible based on patient's age to complete this topic Pneumococcal Vaccine: Pediatrics (0 to 5 Years) and At-Risk Patients (6 to 49 Years) Aged Out No longer eligible b ased on patient's age to complete this topic RSV Immunizations Under 20 Months Aged Out No longer eligible b ased on patient's age to complete this topic Procedures Procedure Name Priority Date/Time Associated Diagnosis Comments MG SCREENING W ANJALI SKYLAR DIGI Routine 03/29/2025 7:23 AM CDT Encounter for screening mammogram for malignant neoplasm of breast from Last 3 Months Results * MG SCREENING W ANJALI SKYLAR DIGI (03/29/2025 7:23 AM CDT) Anatomical Region Laterality Modality Breast Bilateral Mammography 03/29/2025 8:17 AM CDT Impressions 03/29/2025 8:18 AM CDT IMPRESSION: No suspicious change since 03/25/2024. Recommendation: 1: Routine Screening Bilateral in 1 Year Assessment: ACR BI-RADS 2 - BENIGN FINDING(S) Ordered By: AUSTEN BALLARD Interpreted By: Med Park MD, 03/29/2025 8:17 AM Narrative 03/29/2025 8:18 AM CDT [address] [place] [address] Examination: Digital screening mammogram with CAD. Clinical history: Asymptomatic patient presents for routine screening. Comparison: 03/25/2024. Technique: Bilateral digital mammograms. The exam was interpreted with the use of a computer-aided detection (CAD) system. Additional 3-D tomosynthesis images were acquired. Tissue density: There are scattered areas of fibroglandular density. Findings: The breast tissue contains scattered fibroglandular densities. Benign-appearing calcification noted. No suspicious mass, microcalcification or area of architectural distortion can be identified. From a mammographic standpoint, routine followup in one year would seem adequate. Procedure Note Med Park MD - 03/29/[address] [place] [address] Examination: Digital screening mammogram with CAD. Clinical history: Asymptomatic patient presents for routine screening. Comparison: 03/25/2024. Technique: Bilateral digital mammograms. The exam was interpreted with theuse of a computer-aided detection (CAD) system. Additional 3-Dtomosynthesis images were acquired. Tissue density: There are scattered areas of fibroglandular density. Findings: The breast tissue contains scattered fibroglandular densities.Benign-appearing calcification noted. No suspicious mass,microcalcification or area of architectural distortion can be identified.From a mammographic standpoint, routine followup in one year would seemadequate. IMPRESSION: No suspicious change since 03/25/2024. Recommendation: 1: Routine Screening Bilateral in 1 Year Assessment: ACR BI-RADS 2 - BENIGN FINDING(S) Ordered By: AUSTEN BALLARD Interpreted By: Med Park MD, 03/29/2025 8:17 AM us Austen Ballard MD MAMMO Final Resu lt from Last [address] [place] [address] [facility] Care Teams Financial Investment Adviser Relationship Specialty Start Date End Date Ciro Gee PA [address] [place] [phone] PCP - General PHYSICIAN APPRENTICE MACHINIST OUTSIDE 02/21/23
--- OUTSIDE RECORDS SUMMARY | 2025-04-01 08:10 | XMS_ITS | Encounter Summary ---
Author Organization [facility] Address [address] [place] [address] Care Team Providers Care Children'S Book Author Name Role Phone Ciro Gee Primary Care Provider [phone] Encounter Details Date Type Department Care Team (Latest Contact Info) Description 07/22/2018 Abstract [facility] , Markus Jordan MD Social History Tobacco Use Types Packs/Day Years Used Date Smoking Tobacco: Never Assessed Comments Unknown Sex and Gender Information Value Date Recorded Sex Assigned at Female 03/29/2025 6:43 AM CDT Legal Sex Female 10:21 PM MARKETING COMMUNICATIONS LEADER Gender Identity Not on file Sexual Orientation Not on file documented as of this encounter Plan of Treatment Not on file documented as of this encounter Visit Diagnoses Not on filedocumented in this encounter Care Teams Children'S Book Author Relationship Specialty Start Date End Date Ciro Gee PA [address] [place] [phone] PCP - General PHYSICIAN SYSTEM DESIGNER 02/21/23 documented as of this encounter
== END 2025-04-01 08:05 | disposition home or self-care (01) ==
LOC: ANHSURGERY 08:08
PROVIDERS: PCP Physician Assistant; Visit Provider Surgery
DX: K40.90 Unilateral inguinal hernia, without obstruction or gangrene, not specified as recurrent (principal)
CPT/HCPCS: 36415; 86850; 86900; 86901

== ENCOUNTER 2025-04-07 00:40 | Day surgery (SDC) | payer BC, SELFPAY ==
[2025-03-31 16:03] VITALS: BMI 30.2
--- NOTE | 2025-03-31 16:12 | SUR.PREOP ---
Report to the Outpatient Waiting Room, entrance under the green pavilion located off [facility], at time 6:30a.m on date 04/07/2025. Planned Procedure Time: 8:30a.m.? Time changes happen often and if your time is changed the preop area will call you the afternoon before. - You and your visitor will be asked to self-screen and do not enter if you have any COVID symptoms. Please call surgeon if you need to reschedule. - A mask is optional within the hospital at this time. Patients may have clear liquids (water, carbonated beverages, clear teas, apple juice) until 3 hours prior to surgery with a maximum of 20 ounces. - No food from midnight until time of surgery and no smoking, or chewing tobacco (or any form of nicotine). No chewing gum, candy or mints. Take only the following medications with a SIP of water on the morning of surgery: N/A DO NOT STOP ANY OF YOUR OTHER PRESCRIPTION MEDICATIONS PRIOR TO SURGERY EXCEPT THE FOLLOWING Hold all vitamins and supplements for 3 days per anesthesiologist. Medications to discontinue per physician vitamins and supplements Date to take last dose 04/04/2025 Please no make-up, nail vatican citizen, hairspray, perfume, deodorant, or body powder the day of surgery.? No jewelry (including any body piercings) or valuables the day of surgery, leave them at home.? Please take a shower or bath the night before, or the morning of, surgery with an antibacterial soap.? Wear comfortable, loose fitting clothing.? Children are encouraged to wear pajamas. - Jewelry must be removed prior to entering the operating room.? Rings and piercings that are not removed may be cut off. - The hospital will not accept responsibility for valuables.? - Please leave all valuables, including medications, at home the day of surgery. If you are going home after surgery, a licensed p d driver must drive you home.? - NO public transportation without another adult if you receive anesthesia. - We recommend that an adult stay with you for 24 hours following discharge. - We also recommend that you do not drive, make important decision, drink alcoholic beverages, or take any drugs that were not prescribed by your health care provider for at least 24 hours after your discharge time. For Pediatric surgeries, we recommend two adults accompany the child home. Follow any additional instructions given to you from your surgeon. Telephone instructions given to Araceli Harris and asked if any additional questions and then verbalized understanding. Patient advised to call surgeon office or pre surgery nurse liaison [phone] if any additional questions.
[2025-04-07] VITALS (11 sets, daily range): BP systolic 98–115; BP diastolic 54–86; PULSE 63–92; RESP 12–20; TEMP 37.1; O2SAT 93–100; BMI 31.2
--- OUTSIDE RECORDS SUMMARY | 2025-04-07 00:42 | XMS_ITS | Clinical Summary ---
Author Organization [facility] Address [address] [place] [address] Care Team Providers Care Army Ranger Name Role Phone Ciro Gee Primary Care Provider [phone] Encounters Date Type Department Care Team Description 03/29/2025 6:51 AM CDT - 03/29/2025 11:59 PM CDT Hospital Encounter [place] [facility] [address] [facility] [place] [id number] Austen Cross MD Discharge Disposition: Home or Self Care (Routine Discharge) 03/29/2025 Travel from Last 3 Months Social History Tobacco Use Types Packs/Day Years Used Date Smoking Tobacco: Never Assessed Comments No Sex and Gender Information Value Date Recorded Sex Assigned at Female 03/29/2025 6:43 AM CDT Legal Sex Female 10:21 PM HANDKERCHIEF MAKER Gender Identity Not on file Sexual Orientation Not on file Last Filed Vital Signs Vital Sign Reading Time Taken Comments Blood Pressure - - Pulse - - Temperature - - Respiratory Rate - - Oxygen Saturation - - Inhaled Oxygen Concentration - - Weight 70.3 kg (155 lb) 09/24/2018 3:14 PM HANDKERCHIEF MAKER Height 154.9 cm (5' 1) 09/24/2018 3:14 PM HANDKERCHIEF MAKER Body Mass Index 29.29 09/24/2018 3:14 PM HANDKERCHIEF MAKER Plan of Treatment Health Maintenance Due Date Last Done Comments Cervical Cancer Screening Richardson p Smear (Age 30 to 64) Every 3 Years 1983 Annual Physical 1986 Hepatitis C 2001 DTaP, Tdap and Td Vaccines ( 1 - Tdap) 2002 Hepatitis B Vaccines (1 of 3 - 19+ 3-dose series) 2002 HPV Vaccines (1 - 3-dose SCD M series) 2010 Cervical Cancer Screening Pa p with HPV Testing (Age 30 to 64) Every 5 Years 2013 Cervical Cancer Screening wi th HPV 2013 COVID-19 Vaccine (2023-2 5 season) 2024 06/09/2021, 05/19/2021 Mammogram Screening 03/29/2027 03/29/2025, 03/25/2024 Meningococcal B Vaccine Aged Out No l [...] 8:17 AM Narrative 03/29/2025 8:18 AM CDT [address] [place] [address] Examination: Digital screening mammogram with CAD. Clinical [...] followup in one year would seem adequate. us Austen Ballard MD MAMMO Final Resu lt from Last 3 Months Insurance [employer] [facility] Care Teams Army Ranger Relationship Specialty Start Date End Date Ciro Gee PA [address] [place] [phone] PCP - General PHYSICIAN FIRST ASSISTANT 02/21/23
--- OUTSIDE RECORDS SUMMARY | 2025-04-07 00:42 | XMS_ITS | Encounter Summary ---
Author Organization [facility] Address [address] [place] [address] Care Team Providers Care Cook Jelly Name Role Phone Ciro Gee Primary Care Provider [phone] Encounter Details Date Type Department Care Team (Latest Contact Info) Description 07/22/2018 Abstract [facility] , Markus Jordan MD Social History Tobacco Use Types Packs/Day Years Used Date Smoking Tobacco: Never Assessed Comments Unknown Sex and Gender Information Value Date Recorded Sex Assigned at Female 03/29/2025 6:43 AM CDT Legal Sex Female 10:21 PM FINISHING DEPARTMENT SUPERVISOR Gender Identity Not on file Sexual Orientation Not on file documented as of this encounter Plan of Treatment Not on file documented as of this encounter Visit Diagnoses Not on filedocumented in this encounter Care Teams Cook Jelly Relationship Specialty Start Date End Date Ciro Gee PA [address] [place] [phone] PCP - General PHYSICIAN CHIROPRACTIC TEACHER 02/21/23 documented as of this encounter
--- OUTSIDE RECORDS SUMMARY | 2025-04-07 00:42 | XMS_ITS | Encounter Summary ---
Author Organization [facility] Address [address] [place] [address] Care Team Providers Care Inflated Ball Molder Name Role Phone Ciro Gee Primary Care Provider [phone] Encounter Details Date Type Department Care Team (Late st Contact Info) Description 02/21/2019 Abstract [facility] [address] [place] [address] , Generic Conversion, Social History Tobacco Use Types Packs/Day Years Used Date Smoking Tobacco: Never Assessed Comments Unknown Sex and Gender Information Value Date Recorded Sex Assigned at Female 03/29/2025 6:43 AM CDT Legal Sex Female 10:21 PM MACHINE UMBRELLA TIPPER Gender Identity Not on file Sexual Orientation Not on file documented as of this encounter Plan of Treatment Not on file documented as of this encounter Visit Diagnoses Not on filedocumented in this encounter Care Teams Inflated Ball Molder Relationship Specialty Start Date End Date Ciro Gee PA [address] [place] [phone] PCP - General PHYSICIAN PATTERN KEEPER 02/21/23 documented as of this encounter
[2025-04-07] MEDS: KETOROLAC 15 MG/ML VIAL (*BKC) IV PUSH (06:55)
[2025-04-07] MEDS: ACETAMINOPHEN 500 MG TABLET 1000 MG PO (06:55)
--- NOTE | 2025-04-07 07:23 | P.SS_ITS ---
Same Day Admit/Disch: HPI History of Present Illness Chief complaint: left inguinal hernia Narrative: Araceli Harris is a 40 year old female who underwent lap mandeep in September. During the work-up, she was noted to also have a left inguinal hernia. It was asymptomatic at the time. Over the last few months, she has developed intermittent associated discomfort. No change in bowel habits, nausea, vomiting, abdominal distension, or other obstructive symptoms. [facility] Past Medical History Medical History Fatty liver High cholesterol Surgical History Surgical History S/P laparoscopic cholecystectomy 09/17/[address] spear History of appendectomy History of endometrial ablation Family History Family History Other Heart disease Hypertension Social History Social History Smoking status: Never smoker Second hand tobacco smoke exposure: No Alcohol intake: never Substance use: never Substance use type: does not use Do You Feel Safe in your Home?: Yes Lack of Transportation: No Lack of Food: Never True Current Housing: I Have Housing Concerned About Future Housing: No Difficulty Paying Gas/Electric Bills: No Difficulty Paying for Meds: No Currently Unemployed: No Education: Master's Degree or Higher Difficulty w/ Childcare or Family Care: No Living arrangements: with family 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 Gender identity (if verbalized by the patient): Female Spiritual care concerns: No Same Day Admit/Disch: Med Pre-admit Medications Home Medications ?Medication ?Instructions ?Recorded ?Confirmed ?Type ketorolac 10 mg tablet 10 mg PO Q6H 4 days #16 tabs 04/07/25 Rx multivitamin 1 tablet PO DAILY 04/07/25 04/07/25 History oxycodone-acetaminophen 5 mg-325 0.5 - 1 tablet PO Q4H PRN pain #10 04/07/25 Rx mg tablet (Percocet) tabs Review of Systems Review of Systems All systems reviewed & are unremarkable except as noted in HPI and below (HPI) Exam Const: General: comfortable, no acute distress, alert and awake HENMT: Head: normocephalic and atraumatic Mouth: Yes Normal oral and palatal mucosa present Eyes: Conjunctivae: conjunctivae normal Pupils: Equal, round and reactive pupils present EOM: EOMs intact bilaterally Neck: Neck: normal visual inspection, no lymphadenopathy and nontender Resp: Effort & Inspection: normal respiratory effort Auscultation: clear to auscultation bilaterally Cardio: Rate: regular rate Rhythm: regular rhythm Heart sounds: no gallops, no murmurs and no rubs GI: Inspection: non-distended and no visible herniation GI Palp: Yes Soft to palpation, No Tenderness to palpation present (GI), No Hepatomegaly present, No Splenomegaly present and Yes Hernia present (She has a left inguinal bulge that pulses with cough, reduces spontaneously) Skin: Lesions: no lesions Rashes: no rashes Neuro: General: no focal motor deficits and CN's II-XI intact bilaterally Cranial nerves: Yes Equal, round and reactive pupils present, Yes Bilaterally i ntact EOM present, Yes facial symmetry and Yes Midline tongue present Speech: normal speech Motor exam (neuro): 5/5 motor strength present throughout and Motor abnormalities not present Extrem: General: no clubbing, cyanosis or edema and edema Psych: Affect: normal affect Thought process: Normal thought process present Insight: Good insight present (Psych) DS: Summary Time Spent with Patient Time attestation: Total time spent providing and/or coordinating discharge services: DS: Admitting Diagnosis Discharge Date 04/07/2025 Admitting Diagnosis * Reducible, symptomatic, left inguinal hernia-after discussion, plan to proceed with robotic laparoscopic repair left inguinal hernia with mesh. The procedure, risks, benefits have been discussed. The usual length of the surgery, the use of mesh, the usual length of recovery have all been discussed. All questions were answered. She understands and agrees to go ahead. Discharge Plan Discharge Patient Disposition: Home Discharge Instructions: 1. May shower the day after surgery over incisions. 2. Call office for: -Wound increasingly painful or bleeding -Vomiting -Fever of greater than 101 degrees 3. Expect some blood on dressing and old blood on skin. 4. If no bowel movement for three days, take 1 oz. (30 ml) Milk of Magnesia, if no results, take Fleets enema. 5. No heavy lifting > 15-20 pounds for 2 weeks. 6. No driving for 3 days or while taking narcotic pain medications. 7. Up walking 10-30 minutes three times per day. 8. Resume previous home medications. 9. Follow-up 10-14 days in office for wound check or as previously scheduled. 10. Oral pain medications prescription to be sent home with patient. 11. NUTRITION: Start out by drinking fluids and increase your diet as tolerated. If you experience nausea, try dry toast, crackers, and 7-UP. If nausea or vomiting persists, contact your surgeon?s office. Patient Language: Yakut Stand Alone Forms: General Discharge Instructions Follow-up/Referrals: Amado Spear MD [Physician] - 3 Weeks Discharge Medications: New ketorolac 10 mg tablet 10 mg PO Q6H 4 Days Qty: 16 0RF oxycodone-acetaminophen [Percocet] 5-325 mg tablet 0.5 - 1 tablet PO Q4H PRN (Reason: pain) Qty: 10 0RF Continued multivitamin Tablet 1 tablet PO DAILY
--- NOTE | 2025-04-07 08:06 | WPDANESEPPF ---
Anes - Initial Pre Proc Eval Procedure: Operation Date: 04/07/25 08:30 Proposed Procedures p Robotic Assisted Laparoscopic Left Inguinal Hernia Repair with Mesh - Amado Spear MD Date/Time: 04/07/25 08:06 Surgeon: Amado Spear MD Pre Op Diagnosis: left inguinal hernia Patient Data Age: 40 Gender: F Height: 1.52 m Weight: 72.6 kg Allergies Allergy/AdvReac Type Severity Reaction Status Date / Time Penicillins Allergy Unknown Unknown Verified 04/07/25 07:18 Home Medications ?Medication ?Instructions ?Recorded ?Confirmed ?Type multivitamin 1 tablet PO DAILY 04/07/25 04/07/25 History Patient hx anesthesia problems: none Family hx anesthesia problems: none Results Review: All pre-operative results and documents have been reviewed as part of the pre-operative evaluation. [facility] Past Medical History Medical History Fatty liver High cholesterol Surgical History Surgical History S/P laparoscopic cholecystectomy 09/17/[address] spear History of appendectomy History of endometrial ablation Family History Family History Other Heart disease Hypertension Social History Social History Smoking status: Never smoker Second hand tobacco smoke exposure: No Alcohol intake: never Substance use: never Substance use type: does not use Do You Feel Safe in your Home?: Yes Lack of Transportation: No Lack of Food: Never True Current Housing: I Have Housing Concerned About Future Housing: No Difficulty Paying Gas/Electric Bills: No Difficulty Paying for Meds: No Currently Unemployed: No Education: Master's Degree or Higher Difficulty w/ Childcare or Family Care: No Living arrangements: with family 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 Informed Consent: The patient's anesthetic plan and its attendant risks and benefits were discussed with the patient/family/POA. Questions were solicited and answers provided to the satisfaction of the patient/family/POA.
--- NOTE | 2025-04-07 08:17 | WPDHPUPDATE1 ---
History and Physical Update Update Date/Time: 04/07/25 08:17 History and Physical has been reviewed, including an updated exam of the patient. There are NO changes in the patient's condition. Risks, benefits, and alternatives have been discussed and questions answered. Patient agrees to proceed with procedure.
[2025-04-07] MEDS: ceFAZolin 2 GM in SODIUM CHLORIDE 0.9% IV 50 ML 100 ML IVPB (08:36)
[2025-04-07] MEDS: BUPIVACAINE/EPINEPHRINE 0.5% 50 ML VIAL 30 ML INFILTRATE (09:14)
[2025-04-07] MEDS: LACTATED RINGERS 1,000 ML 30 ML IV CONT ×2 (10:27)
--- NOTE | 2025-04-07 11:00 | W.PM.PROC2 ---
Procedure Note - Detailed Date of Procedure 04/07/25 Pre-op Diagnosis left inguinal hernia Post-op Diagnosis Same Procedure Performed Robotic laparoscopic repair left inguinal hernia with mesh Surgeon Amado Melton MD Medicine Assistant Carolynn Bullock [employer] PSYCHOLOGIST Anesthesia General and Local Indications Patient has had discomfort in the left groin for several months. Exam shows a reducible left inguinal hernia. She is taken to surgery now for robotic laparoscopic repair with mesh Findings This was an indirect hernia Description of Procedure Patient was taken to surgery and induced into general anesthesia. The abdomen is prepped and draped. Trocars were placed in the usual fashion starting with a 5 mm applied Medical optical trocar and then placing all robotic trocars under direct visualization. Patient was placed in Trendelenburg. The robotic arms were brought into the field and the camera was docked and targeted. The instruments were then docked and positioned appropriately. The surgeon went to the robotic console. An anterior peritoneal flap was created over the inguinal canal structures. This flap was developed broadly from anterior to posterior. The indirect hernia was noted and there was also quite a bit of lipomatous tissue in the inguinal canal. The flap was continued to be dissected posteriorly. Medially dissection was carried under the left rectus muscle down to Naveen's ligament. Naveen's ligament and the pubis were exposed. Dissection continued just a couple of cm to the right of midline. The dissection was also continued anteriorly so that the medial aspect of the right rectus muscle was also exposed. We then went back to the area of the hernia. Gentle traction was placed on the hernia sac. The hernia sac was dissected from the internal ring and inguinal canal. It was dissected back and posterior. During the dissection, the round ligament was very intimately attached to the hernia sac. I placed traction on the round ligament and then divided it near the internal ring. Once the hernia sac in the peritoneum had been dissected adequately, I then turned my attention to the lipomatous tissue which was also dissected free from the inguinal canal and the peritoneum. Dissection was then continued as I looked at the direct space. No hernia was noted there. I continued the posterior dissection of the peritoneum so that it was at least fiber 6 cm posterior to the lower margin of the internal ring. A large left mid 3D max mesh, 16 x 10 cm, was then brought into the peritoneal cavity. This was positioned over the inguinal canal structures. Once in appropriate position, 3-0 Vicryl suture were used to secure it in place. The 1st 3-0 Vicryl suture placed in Naveen's ligament resulted in bleeding from vessels in that area. The mesh was retracted and I was able to cauterize this bleeding vessel. Mesh was then replaced and we suctioned the residual blood. The 2 anterior 3-0 Vicryl sutures were then placed, 1 medial and 1 lateral. All looked good, the mesh was in good position. Was no sign of further bleeding or problems. I then closed the peritoneal opening with running 3 0 V lock suture. We then removed the suture needles. Instruments were removed and the robot was undocked. CO2 was evacuated from the abdominal cavity. The trocars were removed and skin incisions were closed with running 4-0 Monocryl skin suture. The wounds were dressed with Exofin surgical adhesive. Patient was awakened and taken to recovery in good condition. Sponge and needle counts were correct x2. Implants Large, 16 x 10 cm, left mid 3DMax mesh Estimated Blood Loss -20 Drains No Packing No Pathology None sent Complications None Condition Stable Disposition PACU [facility] Billing Surgery - Charge Forward: Surgery Billing ( robotic laparoscopic repair left inguinal hernia with mesh)
[2025-04-07] MEDS: HYDROmorphone HCL INJ (*CRX) 1 MG/ML SYR 0.5 MG IV PUSH ×4 (11:10→11:49)
[2025-04-07] MEDS: oxyCODONE HCL (*CRX) 5 MG TAB IR PO (12:44)
== END 2025-04-07 13:10 | disposition home or self-care (01) ==
PROVIDERS: PCP Physician Assistant; Visit Provider Surgery
PROC: 8E0Y4CZ Robotic Assisted Procedure of Lower Extremity, Percutaneous Endoscopic Approach (ICD-10-PCS; CPT 49650; principal; 2025-04-07 08:30)
DX: K40.90 Unilateral inguinal hernia, without obstruction or gangrene, not specified as recurrent (principal); G89.18 Other acute postprocedural pain; E78.00 Pure hypercholesterolemia, unspecified; Z79.891 Long term (current) use of opiate analgesic; Z98.890 Other specified postprocedural states; Z90.49 Acquired absence of other specified parts of digestive tract; Z98.891 History of uterine scar from previous surgery; Z82.49 Family history of ischemic heart disease and other diseases of the circulatory system
CPT/HCPCS: 49650; S2900; J0690; A9270; C1781; J1100; J1171; J1885; J2003; J2250; J2405; J2704; J3010; J7030; J7120